=== PATIENT | female | born 1940 | race Caucasian/White ===

== ENCOUNTER → 2016-04-26 | Outpatient (CLI) | payer MEDICARE, BC ==
[2016-04-26 16:26] LABS: ALT 52 U/L (9-52); AST 31 U/L (14-36); Cholesterol 133 mg/dL (<200); HDL Cholesterol 39 mg/dL (40-60); Triglycerides 157 mg/dL (<150)
== END | disposition home or self-care (01) ==
LOC: LABWHC1 15:39
PROVIDERS: ATTEND Internal Medicine Interventional Cardiology
DX: E78.2 Mixed hyperlipidemia (principal)
CPT/HCPCS: 36415; 80061; 84450; 84460

== ENCOUNTER → 2016-10-04 | Outpatient (CLI) | payer MEDICARE, BC ==
[2016-10-04 10:25] LABS: ALT 48 U/L (9-52); AST 35 U/L (14-36); Alkaline Phosphatase 79 U/L (38-126); Anion Gap 12 mmol/L; Blood Urea Nitrogen 19 mg/dL (7-17); Calcium 9.1 mg/dL (8.4-10.2); Carbon Dioxide 28 mmol/L (22-30); Chloride 101 mmol/L (98-107); Cholesterol 136 mg/dL (<200); Glucose 101 mg/dL (74-99); HDL Cholesterol 41 mg/dL (40-60); Non-African American GFR(MDRD) >60 (>60 ml/min/1.73 sqM); Potassium 4.3 mmol/L (3.5-5.1); Sodium 141 mmol/L (137-145); Total Bilirubin 0.7 mg/dL (0.2-1.3); Total Protein 6.7 g/dL (6.3-8.2); Triglycerides 114 mg/dL (<150)
== END | disposition home or self-care (01) ==
LOC: LABWHC1 09:40
PROVIDERS: ATTEND Internal Medicine Interventional Cardiology
DX: E78.2 Mixed hyperlipidemia (principal)
CPT/HCPCS: 36415; 80053; 80061

== ENCOUNTER → 2017-09-24 | Outpatient (CLI) | payer MEDICARE ==
[2017-09-24 10:19] LABS: ALT 82 U/L (9-52); AST 62 U/L (14-36); Albumin 3.9 g/dL (3.5-5.0); Alkaline Phosphatase 80 U/L (38-126); Anion Gap 11 mmol/L; Blood Urea Nitrogen 16 mg/dL (7-17); Calcium 9.3 mg/dL (8.4-10.2); Carbon Dioxide 30 mmol/L (22-30); Chloride 102 mmol/L (98-107); Cholesterol 115 mg/dL (<200); Glucose 92 mg/dL (74-99); HDL Cholesterol 41 mg/dL (40-60); LDL Cholesterol,Calculated 46 mg/dL (0-99); Sodium 143 mmol/L (137-145); Total Bilirubin 0.3 mg/dL (0.2-1.3); Total Protein 6.2 g/dL (6.3-8.2); Triglycerides 142 mg/dL (<150)
== END | disposition home or self-care (01) ==
LOC: LABWHC1 09:03
PROVIDERS: ATTEND Internal Medicine Interventional Cardiology
DX: E78.2 Mixed hyperlipidemia (principal)
CPT/HCPCS: 36415; 80053; 80061

== ENCOUNTER → 2018-04-18 | Outpatient (CLI) | payer MEDICARE ==
[2018-04-18 17:00] LABS: Albumin 4.1 g/dL (3.80-4.90); Albumin/Globulin Ratio 2.28 (1.20-2.10); Anion Gap 7.4 mmol/L (4.00-12.00); Calcium 9.2 mg/dL (8.7-10.3); Carbon Dioxide 31.6 mmol/L (21.6-31.8); Globulin 1.8 g/dL (1.6-3.3); Potassium 4.9 mmol/L (3.5-5.5); Total Bilirubin 0.4 mg/dL (0.3-1.2); Total Protein 5.9 g/dL (6.2-8.2)
== END | disposition home or self-care (01) ==
LOC: LABWHC1 08:47
PROVIDERS: ATTEND Internal Medicine Interventional Cardiology
DX: E78.2 Mixed hyperlipidemia (principal)
CPT/HCPCS: 36415; 80053; 80061

== ENCOUNTER 2018-09-27 12:49 | Inpatient (IN) | payer MEDICARE ==
[2018-09-27] MEDS ORDERED: hydrALAZINE HCL 20 MG/ML 1 ML VIAL IVP STA (14:23)
[2018-09-27] MEDS ORDERED: SODIUM CHLORIDE 0.9% 1,000 ML IV ONE (14:23)
--- NOTE | 2018-09-27 14:32 | ED ---
General Adult HPI <Troy Guerra - Last Filed: 09/27/18 16:40> - General Source: patient, RN notes reviewed, old records reviewed Mode of arrival: ambulatory <MiguelMichelle funk - Last Filed: 09/27/18 17:03> - General Chief complaint: Recheck/Abnormal Lab/Rx Stated complaint: sent by HTN Time Seen by Provider: 09/27/18 13:56 - History of Present Illness Initial comments: 77-year-old female presents emergency department today for evaluation today with complaints of high blood pressure. She states that she's been feeling that her blood pressure was high complaint of slight headache shortness of breath. She took her blood pressure at home was 250s over 100. Patient went to clinic in the clinic Center directly here. She states that she does see Dr. Euceda has a previous history of cardiac stenting. Patient states that she's been out of her [facility] blood pressure medicine for a few weeks. She does take her other medications as directed. Patient denies any significant chest pain. She does complain of a headache. (Michelle Rivera) - Related Data Home Medications Medication Instructions Recorded Confirmed Aspirin 81 mg PO DAILY 01/16/16 01/17/16 Calcium Carbonate/Vitamin D3 1 each PO BID 01/16/16 01/17/16 [Calcium 600-Vit D3 200 Tablet] Cholecalciferol [Vitamin D3 (25 3,000 unit PO DAILY 01/16/16 01/17/16 Mcg = 1000 Iu)] Losartan/Hydrochlorothiazide 1 each PO DAILY 01/16/16 01/17/16 [Hyzaar 100-25 Tablet] Multivit with Calcium,Iron,Min 1 each PO DAILY 01/16/16 01/17/16 [Women's Daily Multivitamin] Nadolol [Corgard] 120 mg PO DAILY 01/16/16 01/17/16 Omeprazole [PriLOSEC] 20 mg PO AC-BRKFST 01/16/16 01/17/16 Tamoxifen [Nolvadex] 20 mg PO DAILY 01/16/16 01/17/16 amLODIPine [Norvasc] 10 mg PO DAILY 01/16/16 01/17/16 Previous Rx's Medication Instructions Recorded Atorvastatin [Lipitor] 80 mg PO HS #90 tab 01/18/16 Clopidogrel [Plavix] 75 mg PO DAILY #90 tab 01/18/16 Nitroglycerin Sl Tabs [Nitrostat] 0.4 mg SUBLINGUAL Q5M PRN #25 tab 01/18/16 Allergies Allergy/AdvReac Type Severity Reaction Status Date / Time CLEO Inhibitors AdvReac Cough Verified 09/27/18 13:23 Review of Systems ROS Other: All systems not noted in ROS Statement are negative. <Troy Guerra - Last Filed: 09/27/18 16:40> ROS Other: All systems not noted in ROS Statement are negative. <Michelle Rivera - Last Filed: 09/27/18 17:03> ROS Statement: Those systems with pertinent positive or pertinent negative responses have been documented in the HPI. Past Medical History Past Medical History: Cancer, Chest Pain / Angina, Fibromyalgia, Hyperlipidemia, Hypertension, Osteoarthritis (OA) Additional Past Medical History / Comment(s): SOB w/exertion, vertigo @times, L breast cancer 2014 with lumpectomy and radiation. History of Any Multi-Drug Resistant Organisms: None Reported Past Surgical History: Bladder Surgery, Breast Surgery, Heart Catheterization With Stent, Hysterectomy, Orthopedic Surgery Additional Past Surgical History / Comment(s): 01/17/16 PTCA with stent prox/mid RCA and ostium RCA. Other surgical hx: bladder suspension, left lumpectomy, L knee arthroscopic surg., R foot surg for fx repair, bunionectomy and hammer toe., infected abscess removed from upper abdomen Past Anesthesia/Blood Transfusion Reactions: Postoperative Nausea & Vomiting (PONV) Date of Last Stent Placement:: 01/17/16 Past Psychological History: No Psychological Hx Reported Smoking Status: Former smoker Past Alcohol Use History: Occasional Past Drug Use History: None Reported - Past Family History Daughter(s) Family Medical History: Deep Vein Thrombosis (DVT) Father Family Medical History: Cancer, Myocardial Infarction ([place]) Additional Family Medical History / Comment(s): Father was obese. He had skin cancer. He of a [place] in his early 70's. Mother Family Medical History: CVA/TIA, Hypertension Additional Family Medical History / Comment(s): Mother at the age of 59yrs from a CVA <Michelle Rivera - Last Filed: 09/27/18 17:03> General Exam General appearance: alert, in no apparent distress Head exam: Present: atraumatic, normocephalic, normal inspection Eye exam: Present: normal appearance, PERRL, EOMI. Absent: scleral icterus, conjunctival injection, periorbital swelling ENT exam: Present: normal exam, mucous membranes moist Neck exam: Present: normal inspection. Absent: tenderness, meningismus, lymphadenopathy Respiratory exam: Present: normal lung sounds bilaterally. Absent: respiratory distress, wheezes, rales, rhonchi, stridor GI/Abdominal exam: Present: soft, normal bowel sounds. Absent: distended, tenderness, guarding, rebound, rigid Extremities exam: Present: normal inspection, full ROM, normal capillary refill. Absent: tenderness, pedal edema, joint swelling, calf tenderness Back exam: Present: normal inspection Neurological exam: Present: alert, oriented X3, CN II-XII intact Psychiatric exam: Present: normal affect, normal mood <Michelle Rivera - Last Filed: 09/27/18 17:03> - General Exam Comments Initial Comments: This is a 77 rolled female. Alert and oriented. No distress. (Michelle Rivera) Course <Troy Guerra - Last Filed: 09/27/18 16:40> <Michelle Rivera - Last Filed: 09/27/18 17:03> Vital Signs 09/27/18 09/27/18 09/27/18 13:21 13:33 14:39 Temperature 98.2 F Pulse Rate 57 L 63 51 L Respiratory 18 16 16 Rate Blood Pressure 223/84 253/98 222/68 O2 Sat by Pulse 95 96 94 L Oximetry 09/27/18 09/27/18 09/27/18 14:59 15:16 15:27 Temperature 97.1 F L Pulse Rate 67 67 Respiratory 16 18 Rate Blood Pressure 184/63 172/66 180/88 O2 Sat by Pulse 98 93 L Oximetry 09/27/18 09/27/18 16:45 16:56 Temperature Pulse Rate 62 61 Respiratory 18 16 Rate Blood Pressure 172/95 193/75 O2 Sat by Pulse 94 L 95 Oximetry - Reevaluation(s) Reevaluation #1: 09/27/18 15:52 Patient started on this time, states that she feels worse than prior to coming in. She states that her face feels flushed, complaining of worsening shortness of breath. (Michelle Rivera) Reevaluation #2: 09/27/18 15:52 Stat EKG was ordered as Patient states she felt worse. Additional sinus rhythm incomplete left bundle branch block borderline EKG. Ventricular rate 67 bpm. Pulse 172 ms. QRS duration 114 ms. QT QTc is 442/467 ms. (Michelle Rivera) Reevaluation #3: 09/27/18 16:40 PG supervision: I proceeded [id number] evaluation patient did discuss [employer] her family. Patient did present with hypertensive emergency with systolic blood pressures proximal 250. She's had exertional dyspnea and shortness of breath at rest frontal headache she states she is to fill right feel well. She was on Benicar which she's not been able get filled for the past 3-4 weeks. She denies any chest pain though she does have a history of heart disease with stents no fevers chills nausea vomiting. She did appear to be flushed. She will be admitted I did discuss the case with Dr. Eisenberg who did come to the emergency department see the patient. (Troy Guerra) Medical Decision Making - Lab Data Result diagrams: 09/27/18 13:50 09/27/18 13:50 <Troy Guerra - Last Filed: 09/27/18 16:40> - Lab Data Result diagrams: 09/27/18 13:50 09/27/18 13:50 - Radiology Data Radiology results: report reviewed <Michelle Rivera - Last Filed: 09/27/18 17:03> - Medical Decision Making Patient is a 77-year-old female presents return today for evaluation for hype rtension. She complains of some mild dyspnea on reevaluation Patient upon repeat arrival she denied any significant symptoms. His lids a mild headache associated with dry blood pressure. She's been out of her Benicar for the past month. At this time patient's EKG and lab work was reviewed and unremarkable. Patient blood pressure did come down from 250/100-190/97 after 20 mg of hydralazine. Her heart rates been in and the mid 60s and emergency department stay. After she walked back from the bathroom she complained of some dyspnea and chest pain on exertion. She was started on aspirin, Nitropaste. Patient will be admitted at this time, started on heparin for concerns for unstable randy na. (Michelle Rivera) - Lab Data Lab Results 09/27/18 09/27/18 09/27/18 Range/Units 13:50 13:50 13:50 WBC 11.3 H (3.8-10.6) k/uL RBC 4.31 (3.80-5.40) m/uL Hgb 12.8 (11.4-16.0) gm/dL Hct 39.3 (34.0-46.0) % MCV 91.2 (80.0-100.0) fL MCH 29.7 (25.0-35.0) pg MCHC 32.6 (31.0-37.0) g/dL RDW 12.9 (11.5-15.5) % Plt Count 227 (150-450) k/uL Neutrophils % 69 % Lymphocytes % 21 % Monocytes % 6 % Eosinophils % 2 % Basophils % 1 % Neutrophils # 7.8 H (1.3-7.7) k/uL Lymphocytes # 2.4 (1.0-4.8) k/uL Monocytes # 0.7 (0-1.0) k/uL Eosinophils # 0.3 (0-0.7) k/uL Basophils # 0.1 (0-0.2) k/uL PT (9.0-12.0) sec INR (<1.2) APTT (22.0-30.0) sec Sodium 143 (137-145) mmol/L Potassium 4.0 (3.5-5.1) mmol/L Chloride 106 (98-107) mmol/L Carbon Dioxide 31 H (22-30) mmol/L Anion Gap 6 mmol/L BUN 15 (7-17) mg/dL Creatinine 0.61 (0.52-1.04) mg/dL Est GFR (CKD-EPI)AfAm >90 (>60 ml/min/1.73 sqM) Est GFR (CKD-EPI)NonAf 87 (>60 ml/min/1.73 sqM) Glucose 85 (74-99) mg/dL Calcium 9.5 (8.4-10.2) mg/dL Magnesium 1.9 (1.6-2.3) mg/dL Total Bilirubin 0.7 (0.2-1.3) mg/dL AST 74 H (14-36) U/L ALT 71 H (9-52) U/L Alkaline Phosphatase 98 (38-126) U/L Troponin I (0.000-0.034) ng/mL NT-Pro-B Natriuret Pep 1020 pg/mL Total Protein 7.2 (6.3-8.2) g/dL Albumin 4.3 (3.5-5.0) g/dL 09/27/18 09/27/18 Range/Units 13:50 13:50 WBC (3.8-10.6) k/uL RBC (3.80-5.40) m/uL Hgb (11.4-16.0) gm/dL Hct (34.0-46.0) % MCV (80.0-100.0) fL MCH (25.0-35.0) pg MCHC (31.0-37.0) g/dL RDW (11.5-15.5) % Plt Count (150-450) k/uL Neutrophils % % Lymphocytes % % Monocytes % % Eosinophils % % Basophils % % Neutrophils # (1.3-7.7) k/uL Lymphocytes # (1.0-4.8) k/uL Monocytes # (0-1.0) k/uL Eosinophils # (0-0.7) k/uL Basophils # (0-0.2) k/uL PT 9.9 (9.0-12.0) sec INR 0.9 (<1.2) APTT 21.2 L (22.0-30.0) sec Sodium (137-145) mmol/L Potassium (3.5-5.1) mmol/L Chloride (98-107) mmol/L Carbon Dioxide (22-30) mmol/L Anion Gap mmol/L BUN (7-17) mg/dL Creatinine (0.52-1.04) mg/dL Est GFR (CKD-EPI)AfAm (>60 ml/min/1.73 sqM) Est GFR (CKD-EPI)NonAf (>60 ml/min/1.73 sqM) Glucose (74-99) mg/dL Calcium (8.4-10.2) mg/dL Magnesium (1.6-2.3) mg/dL Total Bilirubin (0.2-1.3) mg/dL AST (14-36) U/L ALT (9-52) U/L Alkaline Phosphatase (38-126) U/L Troponin I <0.012 (0.000-0.034) ng/mL NT-Pro-B Natriuret Pep pg/mL Total Protein (6.3-8.2) g/dL Albumin (3.5-5.0) g/dL 09/27/18 14:34 EKG shows sinus bradycardia with PVCs, otherwise normal EKG. Ventricular rate 50 beats.. TX interval is 180 ms. Frustration 104. QTQTC's were 64/423 ms. (Michelle Rivera) - Radiology Data Chest x-ray shows evidence of pulmonary fibrosis. Mild cardiomegaly. (Michelle Rivera) Disposition <Troy Guerra - Last Filed: 09/27/18 16:40> Is patient prescribed a controlled substance at d/c from ED?: No Time of Disposition: 17:03 <Michelle Rivera - Last Filed: 09/27/18 17:03> Clinical Impression: Hypertensive emergency, Dyspnea on exertion, Unstable angina Disposition: HOME SELF-CARE Condition: Good Referrals: Alanis Choe MD [Primary Care Provider] - 1-2 days
[2018-09-27 14:42] LABS: Basophils # (A) 0.1 k/uL (0-0.2); Basophils % (A) 1 %; Eosinophils # (A) 0.3 k/uL (0-0.7); Eosinophils % (A) 2 %; HCT 39.3 % (34.0-46.0); HGB 12.8 gm/dL (11.4-16.0); Lymphocytes # (A) 2.4 k/uL (1.0-4.8); Lymphocytes % (A) 21 %; MCH 29.7 pg (25.0-35.0); MCHC 32.6 g/dL (31.0-37.0); MCV 91.2 fL (80.0-100.0); Mean Platelet Volume 8.1; Monocytes # (A) 0.7 k/uL (0-1.0); Monocytes % (A) 6 %; Neutrophils # (A) 7.8 k/uL (1.3-7.7); Neutrophils % (A) 69 %; Platelet Count 227 k/uL (150-450); RBC 4.31 m/uL (3.80-5.40); RDW 12.9 % (11.5-15.5); WBC 11.3 k/uL (3.8-10.6)
[2018-09-27 14:49] LABS: ALT 71 U/L (9-52); AST 74 U/L (14-36); African American GFR (CKD) >90 (>60 ml/min/1.73 sqM); Albumin 4.3 g/dL (3.5-5.0); Alkaline Phosphatase 98 U/L (38-126); Anion Gap 6 mmol/L; Blood Urea Nitrogen 15 mg/dL (7-17); Calcium 9.5 mg/dL (8.4-10.2); Carbon Dioxide 31 mmol/L (22-30); Chloride 106 mmol/L (98-107); Glucose 85 mg/dL (74-99); Magnesium 1.9 mg/dL (1.6-2.3); Sodium 143 mmol/L (137-145); Total Bilirubin 0.7 mg/dL (0.2-1.3); Total Protein 7.2 g/dL (6.3-8.2)
[2018-09-27 15:02] LABS: INR 0.9 (<1.2); Prothrombin Time 9.9 sec (9.0-12.0)
[2018-09-27 15:19] LABS: Partial Thromboplastin Time 21.2 sec (22.0-30.0)
[2018-09-27] MEDS ORDERED: ASPIRIN 325 MG TAB PO STA (15:45)
[2018-09-27] MEDS ORDERED: NITROGLYCERIN OINT 1 INCH/GM PACKET TOPICAL STA (15:45)
--- NOTE | 2018-09-27 15:45 | XR ---
EXAMINATION TYPE: XR chest 2V DATE OF EXAM: 09/27/2018 COMPARISON: NONE HISTORY: Chest pain TECHNIQUE: Frontal and lateral views of the chest are obtained. FINDINGS: Heart is enlarged. There is coarsening of the lung markings. There are clips over the left breast. There is no pleural effusion. Bony thorax is intact. IMPRESSION: Pulmonary fibrosis. Mild cardiomegaly.
[2018-09-27] MEDS ORDERED: HEPARIN SODIUM,PORCINE 5,000 UNIT/ML 1 ML VIAL IV ONE (16:20)
[2018-09-27] MEDS ORDERED: NITROGLYCERIN SL TABS 0.4 MG TAB SUBLINGUAL PRN (16:20)
[2018-09-27] MEDS ORDERED: HEPARIN SOD,PORK IN 0.45% NACL 25,000 UNIT in 0.45% NACL 1 250ML.BAG IV SCH (16:30)
[2018-09-27] MEDS: SODIUM CHLORIDE 0.9% 1,000 ML IV SCH (16:52)
[2018-09-27] MEDS ORDERED: LOSARTAN 50 MG TAB PO STA (16:53)
[2018-09-27 16:57] VITALS: RESP 16
[2018-09-27] MEDS ORDERED: ACETAMINOPHEN TAB 500 MG TAB PO STA (16:58)
--- NOTE | 2018-09-27 16:58 | P.HPIM ---
History of Present Illness 77-year-old pleasant female is being admitted for accelerated hypertension and hypertensive urgency. Patient takes her blood pressure which was very high was coming of some shortness of breath although there is no pulmonary edema does have pulmonary fibrosis which is chronic. Was seen in urgent care urgent care people sent her here and patient was given a dose of hydralazine patient blood pressure is presently 170 is supposed to systolics. Patient used to be on Benicar until 3 weeks ago and the [facility] didn't refill that medication as a supplier does not have this medication. Patient was having on and off headache beyond that patient doesn't have any other symptoms of hypertensive urgency including the blurry vision confusion, chest pain abdominal pain there is some shortness of breath but there is no flash pulmonary edema. Her medications are not to verified it because of which I didn't do the reconciliation yet. Patient had a history of coronary disease with stents in the past. Review of Systems REVIEW OF SYSTEMS: CONSTITUTIONAL: No fever, no malaise, no fatigue. HEENT: No recent visual problems or hearing problems. Denied any sore throat. CARDIOVASCULAR: No chest pain, orthopnea, PND, no palpitations, no syncope. PULMONARY: no cough, no hemoptysis. GASTROINTESTINAL: No diarrhea, no nausea, no vomiting, no abdominal pain. NEUROLOGICAL: no weakness, no numbness. HEMATOLOGICAL: Denies any bleeding or petechiae. GENITOURINARY: Denies any burning micturition, frequency, or urgency. MUSCULOSKELETAL/RHEUMATOLOGICAL: Denies any joint pain, swelling, or any muscle pain. ENDOCRINE: Denies any polyuria or polydipsia. The rest of the 14-point review of systems is negative. Past Medical History Past Medical History: Cancer, Chest Pain / Angina, Fibromyalgia, Hyperlipidemia, Hypertension, Osteoarthritis (OA) Additional Past Medical History / Comment(s): SOB w/exertion, vertigo @times, L breast cancer 2013 with lumpectomy and radiation. History of Any Multi-Drug Resistant Organisms: None Reported Past Surgical History: Bladder Surgery, Breast Surgery, Heart Catheterization With Stent, Hysterectomy, Orthopedic Surgery Additional Past Surgical History / Comment(s): 01/17/16 PTCA with stent prox/mid RCA and ostium RCA. Other surgical hx: bladder suspension, left lumpectomy, L knee arthroscopic surg., R foot surg for fx repair, bunionectomy and hammer toe., infected abscess removed from upper abdomen Past Anesthesia/Blood Transfusion Reactions: Postoperative Nausea & Vomiting (PONV) Date of Last Stent Placement:: 01/17/16 Past Psychological History: No Psychological Hx Reported Smoking Status: Former smoker Past Alcohol Use History: Occasional Past Drug Use History: None Reported - Past Family History Daughter(s) Family Medical History: Deep Vein Thrombosis (DVT) Father Family Medical History: Cancer, Myocardial Infarction ([place]) Additional Family Medical History / Comment(s): Father was obese. He had skin cancer. He of a [place] in his early 70's. Mother Family Medical History: CVA/TIA, Hypertension Additional Family Medical History / Comment(s): Mother at the age of 59yrs from a CVA Medications and Allergies Home Medications Medication Instructions Recorded Confirmed Type Aspirin 81 mg PO DAILY 01/16/16 01/17/16 History Calcium Carbonate/Vitamin D3 1 each PO BID 01/16/16 01/17/16 History [Calcium 600-Vit D3 200 Tablet] Cholecalciferol [Vitamin D3 (25 3,000 unit PO DAILY 01/16/16 01/17/16 History Mcg = 1000 Iu)] Losartan/Hydrochlorothiazide 1 each PO DAILY 01/16/16 01/17/16 History [Hyzaar 100-25 Tablet] Multivit with Calcium,Iron,Min 1 each PO DAILY 01/16/16 01/17/16 History [Women's Daily Multivitamin] Nadolol [Corgard] 120 mg PO DAILY 01/16/16 01/17/16 History Omeprazole [PriLOSEC] 20 mg PO AC-BRKFST 01/16/16 01/17/16 History Tamoxifen [Nolvadex] 20 mg PO DAILY 01/16/16 01/17/16 History amLODIPine [Norvasc] 10 mg PO DAILY 01/16/16 01/17/16 History Atorvastatin [Lipitor] 80 mg PO HS #90 tab 01/18/16 Rx Clopidogrel [Plavix] 75 mg PO DAILY #90 tab 01/18/16 Rx Nitroglycerin Sl Tabs [Nitrostat] 0.4 mg SUBLINGUAL Q5M PRN #25 tab 01/18/16 Rx Allergies Allergy/AdvReac Type Severity Reaction Status Date / Time CLEO Inhibitors AdvReac Cough Verified 09/27/18 13:23 Physical Exam Vitals: Vital Signs Temp Pulse Resp BP Pulse Ox 09/27/18 16:45 62 18 172/95 94 L 09/27/18 15:27 97.1 F L 67 18 180/88 93 L 09/27/18 15:16 67 16 172/66 98 09/27/18 14:59 184/63 09/27/18 14:39 51 L 16 222/68 94 L 09/27/18 13:33 63 16 253/98 96 09/27/18 13:21 98.2 F 57 L 18 223/84 95 Intake and Output 09/27/18 09/27/18 09/27/18 06:59 14:59 22:59 Other: Weight 81.647 kg PHYSICAL EXAMINATION: GENERAL: The patient is alert and oriented x3, not in any acute distress. Well developed, well nourished. HEENT: Pupils are round and equally reacting to light. EOMI. No scleral icterus. No conjunctival pallor. Normocephalic, atraumatic. No pharyngeal erythema. No thyromegaly. CARDIOVASCULAR: S1 and S2 present. No murmurs, rubs, or gallops. PULMONARY: Chest is clear to auscultation, no wheezing or crackles. ABDOMEN: Soft, nontender, nondistended, normoactive bowel sounds. No palpable organomegaly. MUSCULOSKELETAL: No joint swelling or deformity. EXTREMITIES: No cyanosis, clubbing, or pedal edema. NEUROLOGICAL: Gross neurological examination did not reveal any focal deficits. SKIN: No rashes. Results CBC & Chem 7: 09/27/18 13:50 09/27/18 13:50 Labs: Abnormal Lab Results - Last 24 Hours (Table) 09/27/18 09/27/18 09/27/18 Range/Units 13:50 13:50 13:50 WBC 11.3 H (3.8-10.6) k/uL Neutrophils # 7.8 H (1.3-7.7) k/uL APTT 21.2 L (22.0-30.0) sec Carbon Dioxide 31 H (22-30) mmol/L AST 74 H (14-36) U/L ALT 71 H (9-52) U/L Assessment and Plan Plan: Accelerated hypertension, hypertensive urgency: Patient was started on a 50 mg of losartan will level monitored overnight patient will be resumed on her home medications and that depending on her blood pressure response with increasing losartan or add a diuretic therapy. Patient probably can be discharged tomorrow Heparin cannot disease with previous stents in the past patient will be resumed on her home medications as these are verified -Fibro-myalgia next and heparin hyperlipidemia -Hypertension -History of breast cancer patient is taking tamoxifen which she'll be done soon in few months. -DVT prophylaxis early ambulation
[2018-09-27] MEDS ORDERED: NALOXONE 0.4 MG/ML 1 ML VIAL IV PRN (17:04)
--- NOTE | 2018-09-27 17:33 | ED ---
Medical Decision Making - Lab Data Result diagrams: 09/27/18 13:50 09/27/18 13:50 Lab Results 09/27/18 09/27/18 09/27/18 Range/Units 13:50 13:50 13:50 WBC 11.3 H (3.8-10.6) k/uL RBC 4.31 (3.80-5.40) m/uL Hgb 12.8 (11.4-16.0) gm/dL Hct 39.3 (34.0-46.0) % MCV 91.2 (80.0-100.0) fL MCH 29.7 (25.0-35.0) pg MCHC 32.6 (31.0-37.0) g/dL RDW 12.9 (11.5-15.5) % Plt Count 227 (150-450) k/uL Neutrophils % 69 % Lymphocytes % 21 % Monocytes % 6 % Eosinophils % 2 % Basophils % 1 % Neutrophils # 7.8 H (1.3-7.7) k/uL Lymphocytes # 2.4 (1.0-4.8) k/uL Monocytes # 0.7 (0-1.0) k/uL Eosinophils # 0.3 (0-0.7) k/uL Basophils # 0.1 (0-0.2) k/uL PT (9.0-12.0) sec INR (<1.2) APTT (22.0-30.0) sec Sodium 143 (137-145) mmol/L Potassium 4.0 (3.5-5.1) mmol/L Chloride 106 (98-107) mmol/L Carbon Dioxide 31 H (22-30) mmol/L Anion Gap 6 mmol/L BUN 15 (7-17) mg/dL Creatinine 0.61 (0.52-1.04) mg/dL Est GFR (CKD-EPI)AfAm >90 (>60 ml/min/1.73 sqM) Est GFR (CKD-EPI)NonAf 87 (>60 ml/min/1.73 sqM) Glucose 85 (74-99) mg/dL Calcium 9.5 (8.4-10.2) mg/dL Magnesium 1.9 (1.6-2.3) mg/dL Total Bilirubin 0.7 (0.2-1.3) mg/dL AST 74 H (14-36) U/L ALT 71 H (9-52) U/L Alkaline Phosphatase 98 (38-126) U/L Troponin I (0.000-0.034) ng/mL NT-Pro-B Natriuret Pep 1020 pg/mL Total Protein 7.2 (6.3-8.2) g/dL Albumin 4.3 (3.5-5.0) g/dL 09/27/18 09/27/18 Range/Units 13:50 13:50 WBC (3.8-10.6) k/uL RBC (3.80-5.40) m/uL Hgb (11.4-16.0) gm/dL Hct (34.0-46.0) % MCV (80.0-100.0) fL MCH (25.0-35.0) pg MCHC (31.0-37.0) g/dL RDW (11.5-15.5) % Plt Count (150-450) k/uL Neutrophils % % Lymphocytes % % Monocytes % % Eosinophils % % Basophils % % Neutrophils # (1.3-7.7) k/uL Lymphocytes # (1.0-4.8) k/uL Monocytes # (0-1.0) k/uL Eosinophils # (0-0.7) k/uL Basophils # (0-0.2) k/uL PT 9.9 (9.0-12.0) sec INR 0.9 (<1.2) APTT 21.2 L (22.0-30.0) sec Sodium (137-145) mmol/L Potassium (3.5-5.1) mmol/L Chloride (98-107) mmol/L Carbon Dioxide (22-30) mmol/L Anion Gap mmol/L BUN (7-17) mg/dL Creatinine (0.52-1.04) mg/dL Est GFR (CKD-EPI)AfAm (>60 ml/min/1.73 sqM) Est GFR (CKD-EPI)NonAf (>60 ml/min/1.73 sqM) Glucose (74-99) mg/dL Calcium (8.4-10.2) mg/dL Magnesium (1.6-2.3) mg/dL Total Bilirubin (0.2-1.3) mg/dL AST (14-36) U/L ALT (9-52) U/L Alkaline Phosphatase (38-126) U/L Troponin I <0.012 (0.000-0.034) ng/mL NT-Pro-B Natriuret Pep pg/mL Total Protein (6.3-8.2) g/dL Albumin (3.5-5.0) g/dL Disposition Clinical Impression: Hypertensive emergency, Dyspnea on exertion, Unstable angina Disposition: ADMITTED IP TO THIS HOSP Condition: Good Referrals: Alanis Choe MD [Primary Care Provider] - 1-2 days
[2018-09-27] MEDS ORDERED: BUTA/APAP/CAF/COD 50-325-40-30 CAP PO STA (19:07)
[2018-09-27] MEDS ORDERED: traMADol 50 MG TAB PO STA (22:21)
[2018-09-27] MEDS: hydrALAZINE HCL 50 MG TAB PO PRN (22:37)
--- NOTE | 2018-09-27 23:09 | CT ---
EXAM: CT Head Without Intravenous Contrast CLINICAL HISTORY: ITS.REASON CT Reason: headache TECHNIQUE: Axial computed tomography images of the head/brain without intravenous contrast. CTDI is 55 mGy and DLP is 1282 mGy-cm. This CT exam was performed using one or more of the following dose reduction techniques: automated exposure control, adjustment of the mA and/or kV according to patient size, and/or use of iterative reconstruction technique. COMPARISON: No relevant prior studies available. FINDINGS: Brain: No hemorrhage, large hypodensity, or mass effect. Chronic microvascular ischemic changes. Ventricles: No hydrocephalus. Age-appropriate cerebral volume loss. Bones/joints: Unremarkable. Soft tissues: Unremarkable. Sinuses: Unremarkable. Mastoid air cells: Clear. IMPRESSION: No acute hemorrhage, hydrocephalus, or mass effect. EXAM: CT Cervical Spine Without Intravenous Contrast CLINICAL HISTORY: ITS.REASON CT Reason: headache TECHNIQUE: Axial computed tomography images of the cervical spine without intravenous contrast. CTDI is 55 mGy and DLP is 1282 mGy-cm. This CT exam was performed using one or more of the following dose reduction techniques: automated exposure control, adjustment of the mA and/or kV according to patient size, and/or use of iterative reconstruction technique. COMPARISON: No relevant prior studies available. FINDINGS: Vertebrae: No acute fracture. Reversal of the normal cervical lordosis. Discs/spinal canal/neural foramina: Severe degenerative disc disease from C4-C6. No high grade spinal canal stenosis. Soft tissues: 2.5 cm lesion in the left thyroid gland. IMPRESSION: No acute fracture or subluxation. 2.5 cm lesion in the left thyroid gland.
[2018-09-27 23:20] LABS: Cholesterol 106 mg/dL (<200); HDL Cholesterol 42 mg/dL (40-60); LDL Cholesterol,Calculated 38 mg/dL (0-99); Triglycerides 130 mg/dL (<150)
[2018-09-28] MEDS: LOSARTAN 50 MG TAB PO SCH (08:16)
[2018-09-28] MEDS: ASPIRIN 81 MG PO SCH (08:17)
[2018-09-28] MEDS: ATORVASTATIN 40 MG TAB PO SCH (08:17)
[2018-09-28] MEDS ORDERED: ASPIRIN 325 MG TAB PO SCH (09:00)
--- NOTE | 2018-09-28 09:00 | P.CRDCN ---
History of Present Illness Consult date: 09/28/18 Requesting physician: Prosper Eisenberg Consult reason: hypertension Chief complaint: Hypertension History of present illness: This is a pleasant 77-year-old female who follows regularly with Dr. Euceda in the office. She has known history of hypertension, hyperlipidemia, coronary artery disease with prior stenting of the proximal and mid right coronary artery and ostium of the right coronary artery in 2016. She states in general she just wasn't feeling well, feeling tired, having mild headache she checked her blood pressure at home which was noted to be greater than 200 systo lic, she states that she relaxed took her blood pressure pill and in spite of that the blood pressure remained high she came to the emergency room for further evaluation and treatment. Patient was on Corgard and Benicar at home, however for the past 2 years she has not taken the Benicar because her pharmacy is not able to obtain it. Blood pressure on arrival here 223/80 with a heart rate in the 50s, 95% on room air. Blood pressure this morning 223/90 with a heart rate in the 50s to 60s, 95% on room air. White blood cell count 11.3, hemoglobin 12.8, platelet count 227. Sodium 143, potassium 4.0, BUN 15 and creatinine 0.6. Magnesium 1.9. Troponins negative 3, BNP 1020. At the time of my examination this morning, patient is complaining of mild headache. A CT of the head and cervical spine was performed which did not reveal any acute hemorrhage or mass effect. No acute fracture or subluxation. A 2.5 cm lesion in the left thyroid noted. EKG shows a sinus bradycardia. Chest x-ray shows pulmonary fibrosis and mild cardiomegaly. Past Medical History Past Medical History: Cancer, Chest Pain / Angina, Fibromyalgia, Hyperlipidemia, Hypertension, Osteoarthritis (OA) Additional Past Medical History / Comment(s): SOB w/exertion, vertigo @times, L breast cancer 2013 with lumpectomy and radiation. History of Any Multi-Drug Resistant Organisms: None Reported Past Surgical History: Bladder Surgery, Breast Surgery, Heart Catheterization With Stent, Hysterectomy, Orthopedic Surgery Additional Past Surgical History / Comment(s): 01/17/16 PTCA with stent prox/mid RCA and ostium RCA. Other surgical hx: bladder suspension, left lumpectomy, L knee arthroscopic surg., R foot surg for fx repair, bunionectomy and hammer toe., infected abscess removed from upper abdomen Past Anesthesia/Blood Transfusion Reactions: Postoperative Nausea & Vomiting (PONV) Date of Last Stent Placement:: 01/17/16 Past Psychological History: No Psychological Hx Reported Additional Psychological History / Comment(s): Pt resides alone. She is independent. Smoking Status: Former smoker Past Alcohol Use History: Occasional Additional Past Alcohol Use History / Comment(s): quit smoking 35 yrs. ago, smoked for 20 yrs. Past Drug Use History: None Reported - Past Family History Daughter(s) Family Medical History: Deep Vein Thrombosis (DVT) Father Family Medical History: Cancer, Myocardial Infarction ([place]) Additional Family Medical History / Comment(s): Father was obese. He had skin cancer. He of a [place] in his early 70's. Mother Family Medical History: CVA/TIA, Hypertension Additional Family Medical History / Comment(s): Mother at the age of 59yrs from a CVA Medications and Allergies Home Medications Medication Instructions Recorded Confirmed Type Aspirin 81 mg PO DAILY 01/16/16 09/27/18 History Calcium Carbonate/Vitamin D3 1 tab PO BID 01/16/16 09/27/18 History [Calcium 600-Vit D3 200 Tablet] Cholecalciferol [Vitamin D3 (25 2,000 unit PO DAILY 01/16/16 09/27/18 History Mcg = 1000 Iu)] Multivit with Calcium,Iron,Min 1 tab PO DAILY 01/16/16 09/27/18 History [Women's Daily Multivitamin] Nadolol [Corgard] 120 mg PO DAILY 01/16/16 09/27/18 History Tamoxifen [Nolvadex] 20 mg PO DAILY 01/16/16 09/27/18 History Atorvastatin Calcium [Lipitor] 40 mg PO DAILY 09/27/18 09/27/18 History Fish Oil/Dha/Epa [Fish Oil 1,200 1 cap PO DAILY 09/27/18 09/27/18 History mg Fish Oil] Glucosam/Damion-Msm1/C/Johann/Bosw 1 tab PO BID 09/27/18 09/27/18 History [Glucosamine-Chondroitin Tablet] Melatonin 10 mg PO HS 09/27/18 09/27/18 History Olmesartan [Benicar] 20 mg PO DAILY 09/27/18 09/27/18 History Pantoprazole [Protonix] 40 mg PO DAILY 09/27/18 09/27/18 History Allergies Allergy/AdvReac Type Severity Reaction Status Date / Time CLEO Inhibitors AdvReac Cough Verified 09/27/18 17:35 Physical Exam Vitals: Vital Signs Temp Pulse Pulse Resp BP BP Pulse Ox 09/28/18 08:04 97 F L 57 L 16 223/91 95 09/28/18 04:00 97 F L 70 16 149/78 92 L 09/28/18 00:00 97 F L 64 16 200/92 98 09/27/18 23:51 97.9 F 59 L 16 166/68 95 09/27/18 22:00 63 16 193/82 95 09/27/18 19:42 57 L 16 194/75 96 09/27/18 18:03 67 16 179/64 96 09/27/18 16:56 61 16 193/75 95 09/27/18 16:45 62 18 172/95 94 L 09/27/18 15:27 97.1 F L 67 18 180/88 93 L 09/27/18 15:16 67 16 172/66 98 09/27/18 14:59 184/63 09/27/18 14:39 51 L 16 222/68 94 L 09/27/18 13:33 63 16 253/98 96 09/27/18 13:21 98.2 F 57 L 18 223/84 95 Intake and Output 09/27/18 09/28/18 09/28/18 22:59 06:59 14:59 Intake Total 88.835 Balance 88.835 Intake: Intake, IV Titration 88.835 Amount Heparin Sod,Pork in 0.45% 88.835 NaCl 25,000 unit In 0.45 % NaCl 1 250ml.bag @ 12 UNITS/KG/HR 9.798 mls/hr IV .Q24H [facility] Rx#: [id number] Other: # Voids 2 Weight 82.4 kg PHYSICAL EXAMINATION: GENERAL: 77-year-old female in no acute distress at the time of my examination HEENT: Head is atraumatic, normocephalic. Pupils equal, round. Sclera anicteric. Conjunctiva are clear. Mucous membranes of the mouth are moist. Neck is supple. There is no elevated jugular venous pressure. No carotid bruit is heard. HEART EXAMINATION: S1 and S2 1 systolic ejection murmur is heard CHEST EXAMINATION: Lungs are clear to auscultation and precussion. No chest wall tenderness is noted on palpation or with deep breathing. ABDOMEN: Soft, nontender. Bowel sounds are heard. No organomegaly noted. EXTREMITIES: 2+ peripheral pulses with no evidence of peripheral edema and no calf tenderness noted. NEUROLOGIC patient is awake, alert and oriented 3 . . Results 09/27/18 13:50 09/27/18 13:50 Cardiac Enzymes 09/27/18 09/27/18 09/27/18 Range/Units 13:50 13:50 19:58 AST 74 H (14-36) U/L Troponin I <0.012 <0.012 (0.000-0.034) ng/mL 09/28/18 Range/Units 01:41 AST (14-36) U/L Troponin I <0.012 (0.000-0.034) ng/mL Coagulation 09/27/18 09/28/18 Range/Units 13:50 00:12 PT 9.9 (9.0-12.0) sec APTT 21.2 L 47.3 H (22.0-30.0) sec Lipids 09/27/18 Range/Units 13:50 Triglycerides 130 (<150) mg/dL Cholesterol 106 (<200) mg/dL HDL Cholesterol 42 (40-60) mg/dL CBC 09/27/18 Range/Units 13:50 WBC 11.3 H (3.8-10.6) k/uL RBC 4.31 (3.80-5.40) m/uL Hgb 12.8 (11.4-16.0) gm/dL Hct 39.3 (34.0-46.0) % Plt Count 227 (150-450) k/uL Comprehensive Metabolic Panel 09/27/18 Range/Units 13:50 Sodium 143 (137-145) mmol/L Potassium 4.0 (3.5-5.1) mmol/L Chloride 106 (98-107) mmol/L Carbon Dioxide 31 H (22-30) mmol/L BUN 15 (7-17) mg/dL Creatinine 0.61 (0.52-1.04) mg/dL Glucose 85 (74-99) mg/dL Calcium 9.5 (8.4-10.2) mg/dL AST 74 H (14-36) U/L ALT 71 H (9-52) U/L Alkaline Phosphatase 98 (38-126) U/L Total Protein 7.2 (6.3-8.2) g/dL Albumin 4.3 (3.5-5.0) g/dL Current Medications Generic Name Dose Route Start Last Admin Trade Name Freq PRN Reason Stop Dose Admin Aspirin 81 mg 09/28/18 09:00 09/28/18 08:17 Aspirin PO 81 mg DAILY NIKO Administration Atorvastatin Calcium 40 mg 09/28/18 09:00 09/28/18 08:17 Lipitor PO 40 mg DAILY NIKO Administration Hydralazine HCl 100 mg 09/27/18 22:21 09/27/18 22:37 Apresoline PO 100 mg Q6HR PRN Administration Blood Pressure - High Sodium Chloride 1,000 mls @ 100 mls/hr 09/27/18 16:00 09/27/18 16:52 Saline 0.9% IV 100 mls/hr .Q10H NIKO Administration Heparin Sodium/Sodium Chloride 250 mls @ 9.798 mls/hr 09/27/18 16:30 09/28/18 01:58 25,000 unit/ Sodium Chloride IV 12 units/kg/hr .Q24H NIKO 9.798 mls/hr Titration Protocol 12 UNITS/KG/HR Losartan Potassium 100 mg 09/28/18 09:00 09/28/18 08:16 Cozaar PO 100 mg DAILY NIKO Administration Nadolol 120 mg 09/28/18 09:00 Corgard PO DAILY NIKO Naloxone HCl 0.2 mg 09/27/18 17:04 Narcan IV Q2M PRN Opioid Reversal Nitroglycerin 0.4 mg 09/27/18 16:20 Nitrostat SUBLINGUAL Q5M PRN Chest Pain Intake and Output 09/27/18 09/28/18 09/28/18 22:59 06:59 14:59 Intake Total 88.835 Balance 88.835 Intake: Intake, IV Titration 88.835 Amount Heparin Sod,Pork in 0.45% 88.835 NaCl 25,000 unit In 0.45 % NaCl 1 250ml.bag @ 12 UNITS/KG/HR 9.798 mls/hr IV .Q24H [facility] Rx#: [id number] Other: # Voids 2 Weight 82.4 kg 09/27/18 13:50 09/27/18 13:50 EKG Interpretations (text) EKG shows sinus bradycardia Assessment and Plan Plan: Assessment and plan #1 hypertensive urgency #2 known history of coronary artery disease with prior RCA stenting in 2016 #3 hyperlipidemia Plan We will obtain an echocardiogram with Doppler study. I resumed her Corgard this morning, we do not have Benicar here so the patient was initiated on Cozaar which I restarted this morning, she's also on nitro paste currently. On discharge if her blood pressure is well-controlled we will change the Benicar to Cozaar so her pharmacy will have its availability. We'll continue to monitor blood pressure. DNP note has been reviewed, I agree with a documented findings and plan of care. Patient was seen and examined.
[2018-09-28] MEDS: NADOLOL 20 MG TAB PO SCH (10:15)
[2018-09-28] MEDS: ACETAMINOPHEN TAB 325 MG TAB PO PRN ×3 (10:28→23:30)
[2018-09-28] MEDS ORDERED: CHLORTHALIDONE 25 MG TAB PO SCH (10:30)
[2018-09-28] MEDS: SODIUM CHLORIDE 0.9% 1,000 ML IV SCH ×2 (12:51)
[2018-09-28] MEDS ORDERED: CHLORTHALIDONE 25 MG TAB PO ONE (15:23)
--- NOTE | 2018-09-28 15:38 | P.PN ---
Subjective 77-year-old the female was admitted secondary to accelerated hypertension and hypertensive urgency. Patient does not have any signs or symptoms of end organ damage at this time patient does not have hypertensive emergency although patient blood pressure remains significantly high multiple medication changes were made because of which I'll continue to monitor 1 more night here and patient will be discharged tomorrow if her blood pressure is better tomorrow. Patient was evaluated by cardiology as well. I received multiple causes today because of headache because of which are pending a CAT scan of the head and spine which did not show any intracranial bleed. Headache is better today Constitutional: Denied any fatigue denied any fever. Cardio vascular: denied any chest pain, palpitations Gastrointestinal denied any nausea vomiting Pulmonary: Denied any shortness of breath cough Neurologic denied any new focal deficits All inpatient medications were reviewed and appropriate changes in these medications as dictated in the interval history and assessment and plan. Objective - Vital Signs Vital signs: Vital Signs Temp 97.8 F 09/28/18 11:24 Pulse 52 L 09/28/18 11:24 Resp 16 09/28/18 11:24 BP 191/79 09/28/18 11:24 Pulse Ox 95 09/28/18 08:04 Intake & Output 09/27/18 09/28/18 09/28/18 18:59 06:59 18:59 Intake Total 88.835 360 Balance 88.835 360 Weight 81.647 kg 82.4 kg Intake: Intake, IV Titration 88.835 Amount Heparin Sod,Pork in 0.45% 88.835 NaCl 25,000 unit In 0.45 % NaCl 1 250ml.bag @ 12 UNITS/KG/HR 9.798 mls/hr IV .Q24H [facility] Rx#: [id number] Oral 360 Other: # Voids 2 1 - Exam PHYSICAL EXAMINATION: GENERAL: The patient is alert and oriented x3, not in any acute distress. Well developed, well nourished. HEENT: Pupils are round and equally reacting to light. EOMI. No scleral icterus. No conjunctival pallor. Normocephalic, atraumatic. No pharyngeal erythema. No thyromegaly. CARDIOVASCULAR: S1 and S2 present. No murmurs, rubs, or gallops. PULMONARY: Chest is clear to auscultation, no wheezing or crackles. ABDOMEN: Soft, nontender, nondistended, normoactive bowel sounds. No palpable organomegaly. MUSCULOSKELETAL: No joint swelling or deformity. EXTREMITIES: No cyanosis, clubbing, or pedal edema. NEUROLOGICAL: Gross neurological examination did not reveal any focal deficits. SKIN: No rashes. - Labs CBC & Chem 7: 09/27/18 13:50 09/27/18 13:50 Labs: Abnormal Lab Results - Last 24 Hours (Table) 09/28/18 Range/Units 00:12 APTT 47.3 H (22.0-30.0) sec Assessment and Plan Plan: Accelerated hypertension, hypertensive urgency: Patient is presently on 100 mg total of losartan along with beta carly and will add chlorthalidone elevated until later in the day hoping that had blood pressure will come down and patient can be discharged but patient blood pressure didn't come down patient will be monitored overnight and increased dose of chlorthalidone possibly if her blood pressure comes down will discharge tomorrow Harris artery disease with previous stents -Fibro-myalgia hyperlipidemia -Hypertension -History of breast cancer patient is taking tamoxifen which she'll be done soon in few months. -DVT prophylaxis early ambulation
[2018-09-28] MEDS: hydrALAZINE HCL 50 MG TAB PO PRN ×2 (17:51→23:31)
--- NOTE | 2018-09-28 18:27 | ECHOF ---
Referral Reason:htn MEASUREMENTS -------- HEIGHT: 154.9 cm WEIGHT: 82.1 kg BP: 223/91 IVSd: 1.8 cm (0.6 - 1.1) LVIDd: 3.8 cm (3.9 - 5.3) LVPWd: 1.9 cm (0.6 - 1.1) IVSs: 1.8 cm LVIDs: 2.4 cm LVPWs: 2.0 cm LAESV Index (A-L): 36.76 ml/m Ao Diam: 2.6 cm (2.0 - 3.7) LA Diam: 3.6 cm (2.7 - 3.8) AV Cusp: 1.8 cm (1.5 - 2.6) EPSS: 0.3 cm MV E Manuel: 0.94 m/s MV DecT: 171 ms MV A Manuel: 1.04 m/s MV E/A Ratio: 0.91 AR PHT: 313 ms RAP: 15.00 mmHg RVSP: 46.04 mmHg MV EF SLOPE: 79.29 mm/s (70 - 150) MV EXCURSION: 14.58 mm (> 18.000) FINDINGS -------- Sinus rhythm. This was a technically good study. The left ventricular size is normal. There is severe concentric left ventricular hypertrophy. Ove rall left ventricular systolic function is normal with, an EF between 55 - 60 %. The right ventricle is normal in size. LA is moderately dilated 34-39 ml/m2 The right atrial size is normal. Interatrial and interventricular septum intact. Aortic valve is trileaflet and is mildly thickened. There is mild aortic regurgitation. The mitral valve leaflets are mildly thickened. Moderate mitral regurgitation is present. Mild tricuspid regurgitation present. There is mild pulmonary hypertension. The right ventricular systolic pressure, as measured by Doppler, is 46.04mmHg. There is no pulmonic regurgitation present. The aortic root size is normal. The inferior vena cava is mildly dilated. There is no pericardial effusion. CONCLUSIONS -------- 1. Sinus rhythm. 2. This was a technically good study. 3. The left ventricular size is normal. 4. There is severe concentric left ventricular hypertrophy. 5. Overall left ventricular systolic function is normal with, an EF between 55 - 60 %. 6. The right ventricle is normal in size. 7. LA is moderately dilated 34-39 ml/m2 8. The right atrial size is normal. 9. Interatrial and interventricular septum intact. 10. Aortic valve is trileaflet and is mildly thickened. 11. There is mild aortic regurgitation. 12. The mitral valve leaflets are mildly thickened. 13. Moderate mitral regurgitation is present. 14. Mild tricuspid regurgitation present. 15. There is mild pulmonary hypertension. 16. The right ventricular systolic pressure, as measured by Doppler, is 46.04mmHg. 17. There is no pulmonic regurgitation present. 18. The aortic root size is normal. 19. The inferior vena cava is mildly dilated. 20. There is no pericardial effusion. OFFICE SYSTEMS TECHNOLOGY INSTRUCTOR: Alanis Esparza RDCS
[2018-09-28] MEDS: PANTOPRAZOLE 40 MG TABLET PO SCH (23:31)
[2018-09-29] MEDS: PANTOPRAZOLE 40 MG TABLET PO SCH (05:57)
[2018-09-29] MEDS: LOSARTAN 50 MG TAB PO SCH (06:45)
[2018-09-29] MEDS: NADOLOL 20 MG TAB PO SCH (08:35)
[2018-09-29] MEDS: ATORVASTATIN 40 MG TAB PO SCH (08:35)
[2018-09-29] MEDS: ASPIRIN 81 MG PO SCH (08:35)
[2018-09-29] MEDS: ACETAMINOPHEN TAB 325 MG TAB PO PRN (08:38)
[2018-09-29] MEDS ORDERED: TAMOXIFEN 10 MG TAB PO SCH (09:00)
[2018-09-29] MEDS ORDERED: CHLORTHALIDONE 25 MG TAB PO SCH (09:00)
[2018-09-29] MEDS ORDERED: amLODIPine 5 MG TAB PO SCH (11:00)
[2018-09-29 12:04] VITALS: BP 175/83; PULSE 53; TEMP 98.7
--- NOTE | 2018-09-29 12:51 | P.PN ---
Subjective Progress Note Date: 09/29/18 This is a pleasant 77-year-old female who follows regularly with Dr. Euceda in the office. She has known history of hypertension, hyperlipidemia, coronary artery disease with prior stenting of the proximal and mid right coronary artery and ostium of the right coronary artery in 2016. She states in general she just wasn't feeling well, feeling tired, having mild headache she checked her blood pressure at home which was noted to be greater than 200 systolic, she states that she relaxed took her blood pressure pill and in spite of that the blood pressure remained high she came to the emergency room for further evaluation and treatment. Patient was on Corgard and Benicar at home, however for the past 2 years she has not taken the Benicar because her pharmacy is not able to obtain it. Blood pressure on arrival here 223/80 with a heart rate in the 50s, 95% on room air. Blood pressure this morning 223/90 with a heart rate in the 50s to 60s, 95% on room air. White blood cell count 11.3, hemoglobin 12.8, platelet count 227. Sodium 143, potassium 4.0, BUN 15 and creatinine 0.6. Magnesium 1.9. Troponins negative 3, BNP 1020. At the time of my examination this morning, patient is complaining of mild headache. A CT of the head and cervical spine was performed which did not reveal any acute hemorrhage or mass effect. No acute fracture or subluxation. A 2.5 cm lesion in the left thyroid noted. EKG shows a sinus bradycardia. Chest x-ray shows pulmonary fibrosis and mild cardiomegaly. 09/29/2018 Patient was seen and examined this morning, overall feeling significantly better. Blood pressure 174/82 with a heart rate in the 50s, 93% on room air. Echocardiogram with Doppler study revealed a normal left ventricular systolic function, moderate mitral regurgitation. Norvasc 5 mg daily will be added to her medication regime today. Objective - Vital Signs Vital signs: Vital Signs Temp 98.7 F 09/29/18 12:00 Pulse 53 L 09/29/18 12:00 Resp 16 09/29/18 12:00 BP 175/83 09/29/18 12:00 Pulse Ox 93 L 09/29/18 12:00 Intake & Output 09/28/18 09/29/18 09/29/18 18:59 06:59 18:59 Intake Total 1500 300 240 Balance 1500 300 240 Weight 82.6 kg Intake: Intake, IV Titration 900 Amount Sodium Chloride 0.9% 1, 900 000 ml @ 100 mls/hr IV . Q10H [facility] Rx#:[id number] Oral 600 300 240 Other: Voiding Method Toilet # Voids 1 1 1 # Bowel Movements 1 - Exam PHYSICAL EXAMINATION: GENERAL: 77-year-old female in no acute distress at the time of my examination HEENT: Head is atraumatic, normocephalic. Pupils equal, round. Sclera anicteric. Conjunctiva are clear. Mucous membranes of the mouth are moist. Neck is supple. There is no elevated jugular venous pressure. No carotid bruit is heard. HEART EXAMINATION: S1 and S2 1 systolic ejection murmur is heard CHEST EXAMINATION: Lungs are clear to auscultation and precussion. No chest wall tenderness is noted on palpation or with deep breathing. ABDOMEN: Soft, nontender. Bowel sounds are heard. No organomegaly noted. EXTREMITIES: 2+ peripheral pulses with no evidence of peripheral edema and no calf tenderness noted. NEUROLOGIC patient is awake, alert and oriented 3 . - Labs CBC & Chem 7: 09/27/18 13:50 09/27/18 13:50 Assessment and Plan Plan: Assessment and plan #1 hypertensive urgency #2 known history of coronary artery disease with prior RCA stenting in 2016 #3 hyperlipidemia Plan Echocardiogram with Doppler study revealed a normal left ventricular systolic function with moderate mitral regurgitation. Norvasc 5 mg daily will be added to the patient's medication regime and if the blood pressure remained stable she may be able to be discharged home later today to follow-up in the office post discharge. DNP note has been reviewed, I agree with a documented findings and plan of care. Patient was seen and examined.
--- NOTE | 2018-09-29 14:28 | P.DS ---
Providers Date of admission: 09/27/18 16:40 Attending physician: Prosper Eisenberg Consults: 09/27/18 16:20 Consult Physician Urgent Consulting Provider: Kamron Euceda Consult Reason/Comments: hypertensive emergency, Unstable Angina Do you want consulting provider notified?: Yes Primary care physician: Alanis Choe MD Hospital Course: 77-year-old the female was admitted secondary to accelerated hypertension and hypertensive urgency. Patient does not have any signs or symptoms of end organ damage at this time patient does not have hypertensive emergency although patient blood pressure remains significantly high multiple medication changes were made because of which I'll continue to monitor 1 more night here and patient will be discharged tomorrow if her blood pressure is better tomorrow. Patient was evaluated by cardiology as well. I received multiple causes today because of headache because of which are pending a CAT scan of the head and spine which did not show any intracranial bleed. Headache is better today 09/29/2018 Patient blood pressure remains high but that has come down. She'll be discharged on amlodipine 5 mg along with the the regimen that was started yesterday which is CLEO inhibitor plus diuretic therapy along with beta carly. Probably not a good idea to change the dosing of amlodipine until after a week as peak action of amlodipine is 1 week. Patient most probably will require a higher dose of Norvasc. PHYSICAL EXAMINATION: GENERAL: The patient is alert and oriented x3, not in any acute distress. Well developed, well nourished. HEENT: Pupils are round and equally reacting to light. EOMI. No scleral icterus. No conjunctival pallor. Normocephalic, atraumatic. No pharyngeal erythema. No thyromegaly. CARDIOVASCULAR: S1 and S2 present. No murmurs, rubs, or gallops. PULMONARY: Chest is clear to auscultation, no wheezing or crackles. ABDOMEN: Soft, nontender, nondistended, normoactive bowel sounds. No palpable organomegaly. MUSCULOSKELETAL: No joint swelling or deformity. EXTREMITIES: No cyanosis, clubbing, or pedal edema. NEUROLOGICAL: Gross neurological examination did not reveal any focal deficits. SKIN: No rashes. Assessment and Plan Plan: Accelerated hypertension, hypertensive urgency: Improved blood pressure. 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 -DVT prophylaxis early ambulation Patient Condition at Discharge: Good Plan - Discharge Summary New Discharge Prescriptions: New Losartan [Cozaar] 100 mg PO DAILY #30 tab Chlorthalidone [Hygroton] 50 mg PO DAILY #30 tab amLODIPine [Norvasc] 5 mg PO DAILY #30 tab Continue Cholecalciferol [Vitamin D3 (25 Mcg = 1000 Iu)] 2,000 unit PO DAILY Aspirin 81 mg PO DAILY Tamoxifen [Nolvadex] 20 mg PO DAILY Nadolol [Corgard] 120 mg PO DAILY Multivit with Calcium,Iron,Min [Women's Daily Multivitamin] 1 tab PO DAILY Calcium Carbonate/Vitamin D3 [Calcium 600-Vit D3 200 Tablet] 1 tab PO BID Atorvastatin Calcium [Lipitor] 40 mg PO DAILY Melatonin 10 mg PO HS Glucosam/Damion-Msm1/C/Johann/Bosw [Glucosamine-Chondroitin Tablet] 1 tab PO BID Fish Oil/Dha/Epa [Fish Oil 1,200 mg Fish Oil] 1 cap PO DAILY Pantoprazole [Protonix] 40 mg PO DAILY Discontinued Olmesartan [Benicar] 20 mg PO DAILY Discharge Medication List Aspirin 81 mg PO DAILY 01/16/16 [History] Calcium Carbonate/Vitamin D3 [Calcium 600-Vit D3 200 Tablet] 1 tab PO BID 01/16/16 [History] Cholecalciferol [Vitamin D3 (25 Mcg = 1000 Iu)] 2,000 unit PO DAILY 01/16/16 [History] Multivit with Calcium,Iron,Min [Women's Daily Multivitamin] 1 tab PO DAILY 01/16/16 [History] Nadolol [Corgard] 120 mg PO DAILY 01/16/16 [History] Tamoxifen [Nolvadex] 20 mg PO DAILY 01/16/16 [History] Atorvastatin Calcium [Lipitor] 40 mg PO DAILY 09/27/18 [History] Fish Oil/Dha/Epa [Fish Oil 1,200 mg Fish Oil] 1 cap PO DAILY 09/27/18 [History] Glucosam/Damion-Msm1/C/Johann/Bosw [Glucosamine-Chondroitin Tablet] 1 tab PO BID 09/27/18 [History] Melatonin 10 mg PO HS 09/27/18 [History] Pantoprazole [Protonix] 40 mg PO DAILY 09/27/18 [History] Chlorthalidone [Hygroton] 50 mg PO DAILY #30 tab 09/29/18 [Rx] Losartan [Cozaar] 100 mg PO DAILY #30 tab 09/29/18 [Rx] amLODIPine [Norvasc] 5 mg PO DAILY #30 tab 09/29/18 [Rx] Follow up Appointment(s)/Referral(s): Alanis Choe MD [Primary Care Provider] - 10/02/18 11:20 am (Friday) Kamron Euceda MD [STAFF PHYSICIAN] - 10/13/18 11:00 am () Ambulatory/Diagnostic Orders: Basic Metabolic Panel [LAB.AMB] Time Frame: 3 Days, Location: None Selected Patient Instructions/Handouts: DASH Eating Plan (DC), Hypertension (DC) Discharge Disposition: HOME SELF-CARE
== END 2018-09-29 13:37 | disposition home or self-care (01) | DRG 305 ==
LOC: EC 12:49 → 3SCARD 16:40
PROVIDERS: ADMIT Internal Medicine; ATTEND Internal Medicine
DX: I16.0 Hypertensive urgency (principal); I25.110 Atherosclerotic heart disease of native coronary artery with unstable angina pectoris; C50.912 Malignant neoplasm of unspecified site of left female breast; I10 Essential (primary) hypertension; E78.5 Hyperlipidemia, unspecified; M79.7 Fibromyalgia; M19.90 Unspecified osteoarthritis, unspecified site; Z79.82 Long term (current) use of aspirin; Z79.818 Long term (current) use of other agents affecting estrogen receptors and estrogen levels; Z79.02 Long term (current) use of antithrombotics/antiplatelets; Z79.899 Other long term (current) drug therapy; Z92.3 Personal history of irradiation; Z95.5 Presence of coronary angioplasty implant and graft; Z98.890 Other specified postprocedural states; Z90.710 Acquired absence of both cervix and uterus; Z87.81 Personal history of (healed) traumatic fracture; Z87.891 Personal history of nicotine dependence; Z88.8 Allergy status to other drugs, medicaments and biological substances; Z83.2 Family history of diseases of the blood and blood-forming organs and certain disorders involving the immune mechanism; Z82.49 Family history of ischemic heart disease and other diseases of the circulatory system; Z82.3 Family history of stroke; Z80.8 Family history of malignant neoplasm of other organs or systems; Z83.49 Family history of other endocrine, nutritional and metabolic diseases; I34.0 Nonrheumatic mitral (valve) insufficiency; J84.10 Pulmonary fibrosis, unspecified
CPT/HCPCS: 36415; 70450; 71046; 72125; 80053; 80061; 83735; 83880; 84443; 84484; 85025; 85610; 85730; 93005; 93306; 94760; 96361; 96365; 96366; 96375; 96376; 99285

== ENCOUNTER → 2018-11-10 | Outpatient (CLI) | payer MEDICARE ==
[2018-11-10 10:22] LABS: Basophils # (A) 0.1 k/uL (0-0.2); Basophils % (A) 1 %; Eosinophils # (A) 0.3 k/uL (0-0.7); Eosinophils % (A) 3 %; HCT 37.3 % (34.0-46.0); HGB 12.5 gm/dL (11.4-16.0); Lymphocytes # (A) 2.5 k/uL (1.0-4.8); Lymphocytes % (A) 26 %; MCH 30.6 pg (25.0-35.0); MCHC 33.5 g/dL (31.0-37.0); MCV 91.3 fL (80.0-100.0); Mean Platelet Volume 7.7; Monocytes # (A) 0.5 k/uL (0-1.0); Monocytes % (A) 5 %; Neutrophils # (A) 5.9 k/uL (1.3-7.7); Neutrophils % (A) 63 %; Platelet Count 255 k/uL (150-450); RBC 4.08 m/uL (3.80-5.40); RDW 13.4 % (11.5-15.5); WBC 9.4 k/uL (3.8-10.6)
[2018-11-10 10:26] LABS: Appearance,Urine Cloudy (Clear); Bacteria,Urine Many /hpf; Bilirubin,Urine Negative (Negative); Blood,Urine Negative (Negative); Color,Urine Yellow; Glucose,Urine (UA) Negative (Negative); Hyaline Casts,Urine 2 /lpf (0-2); Ketones,Urine Negative (Negative); Leukocyte Esterase,Urine Trace (Negative); Mucus,Urine Rare /hpf; Nitrite,Urine Negative (Negative); PH, Urine 5.5 (5.0-8.0); Protein,Urine Negative (Negative); RBC,Urine 2 /hpf (0-5); Specific Gravity,Urine 1.019 (1.001-1.035); Squamous Epithelial Cell,Urine 7 /hpf (0-4); Urobilinogen,Urine <2.0 mg/dL (<2.0); WBC,Urine 2 /hpf (0-5)
[2018-11-10 10:39] LABS: INR 0.9 (<1.2); Prothrombin Time 9.7 sec (9.0-12.0)
[2018-11-10 10:52] LABS: Partial Thromboplastin Time 21.6 sec (22.0-30.0)
[2018-11-10 15:44] LABS: African American GFR (CKD) 94.8 (60.0-200.0); Albumin 3.9 g/dL (3.80-4.90); Albumin/Globulin Ratio 1.95 (1.60-3.17); Anion Gap 9.9 mmol/L (4.00-12.00); BUN/Creat Ratio 25.71 Ratio (12.00-20.00); Calcium 9.2 mg/dL (8.7-10.3); Carbon Dioxide 31.1 mmol/L (21.6-31.8); Potassium 3.8 mmol/L (3.5-5.5); Total Bilirubin 0.4 mg/dL (0.3-1.2); Total Protein 5.9 g/dL (6.2-8.2)
== END | disposition home or self-care (01) ==
LOC: LABWHC1 09:51
PROVIDERS: ATTEND Orthopaedic Surgery
DX: Z01.812 Encounter for preprocedural laboratory examination (principal)
CPT/HCPCS: 36415; 80053; 81001; 85025; 85610; 85730; 87070

== ENCOUNTER 2018-11-23 05:32 | Day surgery (SDC) | payer MEDICARE ==
[2018-11-19 08:46] VITALS: BMI 33.5
[~2018-11-23 05:32] MED LIST: ACETAMINOPHEN TAB 500 MG TAB PO ONE; MELOXICAM 7.5 MG TAB PO ONE; TRANEXAMIC ACID 1,000 MG in SODIUM CHLORIDE 0.9% 100 ML IVPB ONE
[2018-11-23] MEDS ORDERED: HYDROmorphone 0.5 MG/0.5 ML SYRINGE IVP PRN ×4 (05:37→06:59)
[2018-11-23] MEDS ORDERED: ONDANSETRON 4 MG/2 ML VIAL IVP ONE (05:37)
[2018-11-23] MEDS ORDERED: MIDAZOLAM 2 MG/2 ML VIAL IV PRN (05:37)
[2018-11-23] MEDS ORDERED: DEXAMETHASONE SOD PHOSPHATE 10 MG/ML 1 ML VIAL IV ONE (05:37)
[2018-11-23] MEDS: LACTATED RINGERS 1,000 ML IV SCH (05:58)
[2018-11-23] MEDS ORDERED: ROPIVACAINE 246.25 MG, EPINEPHrine 0.5 MG, KETOROLAC 30 MG, cloNIDine HCL/PF 80 MCG, WA... MISCELLANE ONE ×5 (06:08)
[2018-11-23] MEDS ORDERED: fentaNYL (PF) 50 MCG/ML 2 ML AMP IVP ONE (06:37)
[2018-11-23] MEDS ORDERED: BISACODYL 10 MG SUPP RECTAL PRN (06:59)
[2018-11-23] MEDS ORDERED: hydrOXYzine PAMOATE 25 MG CAP PO PRN (06:59)
[2018-11-23] MEDS ORDERED: ONDANSETRON 4 MG/2 ML VIAL IVP PRN (06:59)
[2018-11-23] MEDS ORDERED: HYDROcodone/APAP 5-325MG 1 EACH TAB PO PRN (06:59)
[2018-11-23] MEDS ORDERED: NA PHOS,M-B/NA PHOS,DI-BA 133 ML ENEMA RECTAL PRN (06:59)
[2018-11-23] MEDS ORDERED: DIAZEPAM 5 MG TAB PO PRN (06:59)
[2018-11-23] MEDS ORDERED: NALOXONE 0.4 MG/ML 1 ML VIAL IV PRN (06:59)
[2018-11-23] MEDS ORDERED: MAGNESIUM HYDROXIDE 2,400 MG/10 ML CUP PO PRN (06:59)
[2018-11-23] MEDS ORDERED: TRANEXAMIC ACID 1,000 MG/10 ML VIAL ONE (07:00)
[2018-11-23] MEDS ORDERED: MIDAZOLAM 2 MG/2 ML VIAL ONE (07:00)
[2018-11-23] MEDS ORDERED: SODIUM CHLORIDE 0.9% 100 ML BAG ONE (07:00)
[2018-11-23] MEDS ORDERED: PROPOFOL 10 MG/ML 20 ML VIAL IV ONE (07:00)
[2018-11-23] MEDS ORDERED: fentaNYL (PF) 50 MCG/ML 2 ML AMP ONE (07:00)
[2018-11-23] MEDS ORDERED: PHENYLEPHRINE-0.9% NACL SYG 1 MG/10 ML SYRINGE ONE (07:00)
[2018-11-23] MEDS ORDERED: ROPIVACAINE 0.2%-NS ON-Q PUMP 1,090 MG, EMPTY PAIN BALL 1 EACH MISCELLANE PRN (07:17)
--- NOTE | 2018-11-23 07:20 | P.ANPRN ---
Procedure Note - Anesthesia - Nerve Block Performed Left Adductor Canal Infusion Time Out Performed: Yes Date of Procedure: 11/23/18 Procedure Start Time: 06:35 Location of Patient Procedure: PreOp Indication: Acute Post-Operative Pain Specifically requested for management of pain by DrKristy: Daron Long Sedation Type: Sedate with meaningful contact maintained Preparation: Sterile Prep Position: Supine Catheter Depth at Skin (cm): 8 Catheter: Indwelling Needle Types: Pajunk Needle Gauge: 18 Technique: Ultrasound Injectate: 0.5% Ropivacaine (see comment for volume) (20 cc) Blood Aspirated: No Pain Paresthesia on Injection Noted: No Resistance on Injection: Normal Events: Uneventful and Well Tolerated
[2018-11-23] MEDS ORDERED: ceFAZolin 3,000 MG in SODIUM CHLORIDE 0.9% IRRIGATIO 3,000 ML IRRIGATION ONE (07:40)
[2018-11-23] MEDS ORDERED: LACTATED RINGERS 1,000 ML IV ONE (08:37)
--- NOTE | 2018-11-23 08:37 | P.OP ---
Date of Procedure: 11/23/18 Preoperative Diagnosis: Severe osteoarthritis left knee Postoperative Diagnosis: Severe osteoarthritis left knee Procedure(s) Performed: Left total knee arthroplasty with Visionaire Implants: Romo and Nephew Journey II CR Oxinium cruciate retaining femoral component size 5, left Romo & Nephew Journey left nonporous tibial baseplate size 4 Romo & Nephew Journey II, XLPE Deep Dished articular insert, size 10 mm, Size 3-4 left Romo & Nephew Journey BCS resurfacing oval patellar component, 29 mm Romo & Nephew visionaire adaptive guide All components were cemented using Palacos R bone cement.. The articulation is Oxinium on polyethylene. Anesthesia: spinal Surgeon: Daron Long Dial Buffer #1: Sarah Jaramillo Estimated Blood Loss (ml): 50 Pathology: other (Bone and cartilage) Condition: stable Disposition: PACU Indications for Procedure: After failure of conservative treatment we discussed the surgical and nonsurgical treatment options at length. Patient wishes to proceed with a total knee arthroplasty. Complications specific to this procedure were discussed at length, including but not limited to infection, bleeding, stiffness, and nerve injury. Patient is aware of all these complications and informed consent was obtained Operative Findings: The operative findings are consistent with severe osteoarthritis of the left knee Description of Procedure: Patient was seen in the preoperative area consent was reviewed and operative site was marked with a skin marker. An adductor canal pain catheter was placed by anesthesia in the preoperative area. Patient was then brought to the operating room and given preoperative antibiotics intravenously. A spinal anesthetic was administered by the anesthesia department. A tourniquet was placed on the upper thigh and the lower extremity was prepped and draped in usual sterile fashion. A gram of transexamic acid was given. A universal timeout was then performed which confirmed the patient's name, surgical site, ALLERGIES, and consent. The lower extremity was then exsanguinated and tourniquet was inflated to 250 mmHg. A standard and anterior midline approach to the knee was performed. The skin and subcutaneous tissue was dissected down to the patellar tendon. A medial parapatellar arthrotomy was then performed. The knee was then extended, the patellar was everted, and the knee was again flexed. Anterior horns of both menisci were excised, and a release was performed to the posterior medial aspect of the knee. On gross visual inspection, there was complete loss of articular cartilage in the medial and patellofemoral joint spaces. There was also significant cartilage damage in the lateral compartment. There were multiple periarticular osteophytes. The distal femoral adaptive guide was then placed in the predetermined pin holes were drilled. The distal femur was then cut through the guide. The guide was then removed and the cut was checked for accuracy. The appropriate 5-in-1 cutting block was then pinned in place using the predrilled holes through the adaptive guide. The anterior condyles were cut without notching. The posterior and chamfer cuts were performed while protecting the collateral ligaments. The cutting block was then removed, and the femoral canal was plugged with autologous bone. Attention was then directed to the tibia. The remaining ACL was removed with a Ronguer, and the tibia was then gently subluxed forward with a large bent knee retractor. Any remaining menisci was excised. The posterior lateral corner was cauterized in order to cauterize the lateral geniculate artery. The tibial adaptive guide was then placed and guide pins were inserted. The Proximal tibia was then cut and sized. Next trials were then placed with the appropriate-sized insert. The knee was able to fully extend and flex to 130 and was stable throughout all range of motion. The knee was then extended, patella everted. Patella was then measured, and then using an osteotomy guide, the patella was cut at the appropriate level. The patella was then measured and drilled and the patella trial was then placed. The knee was then taken through range of motion with the patella trial and the patella tracked normally. The knee was then extended patella trial was then removed and the patella was everted. Knee was then flexed and lug holes were drilled through the femoral trial and the femoral trial was then removed. The tibial was then exposed, and the tibial broach guide was then pinned in place after it was set for the appropriate rotation to allow for the most coverage without overhang. The tibia was then reamed and broached. The cut surfaces of bone were then irrigated with pulsatile lavage. The posterior structures were injected with the ropivacaine solution. The knee was also irrigated with Irrisept solution. The components were then opened, the cement was mixed, and the components were then cemented in place. The cement was allowed to harden with the knee in full extension. While the cement was hardening, the remaining soft tissues were then injected with a ropivacaine solution, which consisted of 246.25 mg of ropivacaine, 0.5 mg of epinephrine, 30 mg of Toradol, 80 g of clonidine, and 48.45 mL of sterile water, for a total of 100 mL of fluid injected. After the cemented hardened. The tourniquet was released, and hemostasis was obtained. A second gram of transexamic acid was given. The knee was again irrigated. The knee was again taken through range of motion and found to be stable throughout all range of motion of 0-130, and the patella tracked normally. The fascia was then closed with #2 strata fix suture. The subcutaneous tissue was closed with 3-0 Vicryl and 3-0 strata fix. Dermabond glue was used for the skin and placed with the knee in flexion. The patient was placed in a sterile silver dressing. Patient was then transferred to recovery room in stable condition. The assistant statistician JERICA Taveras was required due the complexity surgery and the need for a skilled surgical processor. She assisted in positioning, draping, retraction, and closure of the wound.
[2018-11-23] MEDS ORDERED: MELOXICAM 7.5 MG TAB PO SCH (09:00)
--- NOTE | 2018-11-23 09:26 | XR ---
EXAMINATION TYPE: XR knee limited LT DATE OF EXAM: 11/23/2018 CLINICAL HISTORY: Left knee pain and arthritis status post total knee replacement. TECHNIQUE: Portable AP and crosstable lateral views of the left knee are obtained immediately postop eratively. COMPARISON: None FINDINGS: Metallic hardware from total left knee arthroplasty is seen and appears satisfactory in al ignment and position. There is evidence of recent surgery with diffuse subcutaneous gas and soft tis terrence swelling noted. IMPRESSION: METALLIC HARDWARE FROM TOTAL LEFT KNEE ARTHROPLASTY IS SATISFACTORY IN ALIGNMENT.
[2018-11-23] MEDS: SODIUM CHLORIDE 0.9% 1,000 ML IV SCH ×2 (13:58→21:39)
[2018-11-23] MEDS ORDERED: SENNOSIDES-DOCUSATE SODIUM 1 EACH TAB PO SCH (21:00)
[2018-11-23] MEDS: ASPIRIN 325 MG TAB PO SCH (21:38)
[2018-11-23] MEDS: HYDROcodone/APAP 5-325MG 1 EACH TAB PO PRN (21:38)
[2018-11-24] MEDS: HYDROcodone/APAP 5-325MG 1 EACH TAB PO PRN ×2 (04:05→09:44)
[2018-11-24] MEDS: LACTATED RINGERS 1,000 ML IV SCH (04:20)
[2018-11-24 07:20] LABS: Basophils # (A) 0.1 k/uL (0-0.2); Basophils % (A) 0 %; Eosinophils # (A) 0.1 k/uL (0-0.7); Eosinophils % (A) 0 %; HGB 11.2 gm/dL (11.4-16.0); Lymphocytes # (A) 2.7 k/uL (1.0-4.8); Lymphocytes % (A) 14 %; MCH 30.4 pg (25.0-35.0); MCHC 33.1 g/dL (31.0-37.0); MCV 91.9 fL (80.0-100.0); Mean Platelet Volume 7.7; Monocytes % (A) 5 %; Neutrophils # (A) 15.8 k/uL (1.3-7.7); Neutrophils % (A) 80 %; Platelet Count 246 k/uL (150-450); RDW 13.1 % (11.5-15.5); WBC 19.8 k/uL (3.8-10.6)
[2018-11-24 07:34] VITALS: BP 117/54; PULSE 54; RESP 16; TEMP 98
[2018-11-24] MEDS: ASPIRIN 325 MG TAB PO SCH (07:44)
[2018-11-24] MEDS ORDERED: MELOXICAM 7.5 MG TAB PO SCH (09:00)
--- NOTE | 2018-11-24 09:22 | P.DS ---
Providers Expected date of discharge: 11/24/18 Attending physician: Daron Long Consults: 11/23/18 06:59 Consult Physician Routine Consulting Provider: Prosper Eisenberg Consult Reason/Comments: medical management Do you want consulting provider notified?: Yes Primary care physician: Alanis Choe MD - Discharge Diagnosis(es) (1) Osteoarthritis of left knee Current Visit: Yes Status: Acute (2) Status post total knee replacement, left Current Visit: Yes Status: Acute Hospital Course: This is a 78-year-old female with known history of degenerative arthritis of the left knee. The patient presents for evaluation. After discussion and considera tion patient elects to proceed with total knee arthroplasty. The patient is seen preoperatively by Dr. Long and medically cleared for surgery by their primary care physician. Patient is admitted to [facility] on 11/23/2018 for total knee arthroplasty. The procedures performed without complication or sequelae. The patient is doing well postoperatively. Labs and vital signs are stable on day of discharge. On day of discharge patient's knee incision is healing well. There is minimal erythema. There is no drainage noted at this time. There is minimal soft tissue swelling to the knee. Patient has full foot and ankle motion without difficulty or pain. Calf is soft and nontender to palpation. Neurovascular status to the left lower extremity is intact. Patient is discharged home in good condition. Opioid start talking form is reviewed and signed at patient bedside. Please see med rec for accurate list of home medications. Plan - Discharge Summary Discharge Rx Participant: Yes New Discharge Prescriptions: New Aspirin 325 mg PO BID #60 tab HYDROcodone/APAP 5-325MG [[place] 5-325] 1 - 2 tab PO Q6HR PRN #56 tab PRN Reason: Pain Sennosides [Senokot] 1 tab PO BID #60 tablet No Action Cholecalciferol [Vitamin D3 (25 Mcg = 1000 Iu)] 2,000 unit PO DAILY Aspirin 81 mg PO DAILY Tamoxifen [Nolvadex] 20 mg PO DAILY Nadolol [Corgard] 120 mg PO DAILY Multivit with Calcium,Iron,Min [Women's Daily Multivitamin] 1 tab PO DAILY Calcium Carbonate/Vitamin D3 [Calcium 600-Vit D3 200 Tablet] 1 tab PO BID Atorvastatin Calcium [Lipitor] 40 mg PO DAILY Glucosam/Damion-Msm1/C/Johann/Bosw [Glucosamine-Chondroitin Tablet] 1 tab PO BID Fish Oil/Dha/Epa [Fish Oil 1,200 mg Fish Oil] 1 cap PO DAILY Pantoprazole [Protonix] 40 mg PO DAILY Losartan [Cozaar] 100 mg PO DAILY #30 tab Chlorthalidone [Hygroton] 50 mg PO DAILY #30 tab amLODIPine [Norvasc] 2.5 mg PO DAILY Discharge Medication List Aspirin 81 mg PO DAILY 01/16/16 [History] Calcium Carbonate/Vitamin D3 [Calcium 600-Vit D3 200 Tablet] 1 tab PO BID 01/16/16 [History] Cholecalciferol [Vitamin D3 (25 Mcg = 1000 Iu)] 2,000 unit PO DAILY 01/16/16 [History] Multivit with Calcium,Iron,Min [Women's Daily Multivitamin] 1 tab PO DAILY 01/16/16 [History] Nadolol [Corgard] 120 mg PO DAILY 01/16/16 [History] Tamoxifen [Nolvadex] 20 mg PO DAILY 01/16/16 [History] Atorvastatin Calcium [Lipitor] 40 mg PO DAILY 09/27/18 [History] Fish Oil/Dha/Epa [Fish Oil 1,200 mg Fish Oil] 1 cap PO DAILY 09/27/18 [History] Glucosam/Damion-Msm1/C/Johann/Bosw [Glucosamine-Chondroitin Tablet] 1 tab PO BID 09/27/18 [History] Pantoprazole [Protonix] 40 mg PO DAILY 09/27/18 [History] Chlorthalidone [Hygroton] 50 mg PO DAILY #30 tab 09/29/18 [Rx] Losartan [Cozaar] 100 mg PO DAILY #30 tab 09/29/18 [Rx] amLODIPine [Norvasc] 2.5 mg PO DAILY 11/19/18 [History] Aspirin 325 mg PO BID #60 tab 11/24/18 [Rx] HYDROcodone/APAP 5-325MG [[place] 5-325] 1 - 2 tab PO Q6HR PRN #56 tab 11/24/18 [Rx] Sennosides [Senokot] 1 tab PO BID #60 tablet 11/24/18 [Rx] Follow up Appointment(s)/Referral(s): [facility], [NON-STAFF] - Daron Long DO [Doctor of Osteopathic Medicine] - 2 Weeks Ambulatory/Diagnostic Orders: Continuous Passive Motion (CPM) Machine [DME.AMB1] Time Frame: 3 Weeks, Location: None Selected Activity/Diet/Wound Care/Special Instructions: Weightbearing as tolerated with a walker. CPM 5-6h daily. Leave dressing intact. May be removed by home care nurse or by patient in 10 days. May shower with dressing on. Please follow up with [facility] and call with any questions or concerns, . Discharge Disposition: HOME WITH HOME HEALTH SERVICES
--- NOTE | 2018-11-24 09:30 | P.PN ---
Progress Note - Text Anesthesia POD 657. Patient is status post left TKR under spinal anesthesia with a left adductor canal catheter placed for postoperative pain relief. With ropivacaine 0.2% running at 8 cc's per hour, the patient's VAS is (0, 2). Catheter site is clean dry and intact.
--- NOTE | 2018-11-24 13:26 | P.CONS ---
History of Present Illness - Reason for Consult Leukocytosis, recommendations regarding antihypertensive medications - History of Present Illness His is a pleasant 78-year-old female was admitted for right knee arthroplasty sepsis underwent surgery patient to call her antidepressant medications patient is actually on 4 of those medications including calcium channel carly, beta carly and the losartan, and diuretic therapy. Patient did take all her medications as today and her blood pressure is low normal at this time. I believe patient can take care of 3 of these medications except for losartan at home. Patient wanted to be discharged today doing well can be discharged although I do not have enough time to titrate I give recommendations regarding antidepressant medications although her blood pressure expected to stay low for Couple days because of which asked her to hold off on losartan and check the blood pressure at home and if he starts going up which is expected , then she can start taking losartan or weight until she sees her primary doctor. Patient can resume her amlodipine diuretic therapy and the beta carly starting tomorrow. Patient does have history of breast cancer is on tamoxifen breast cancer is in remission. Patient doesn't have any signs or symptoms of sepsis no cough does have leukocytosis which is reactive from surgery no dysuria. Review of Systems REVIEW OF SYSTEMS: CONSTITUTIONAL: No fever, no malaise, no fatigue. HEENT: No recent visual problems or hearing problems. Denied any sore throat. CARDIOVASCULAR: No chest pain, orthopnea, PND, no palpitations, no syncope. PULMONARY: No shortness of breath, no cough, no hemoptysis. GASTROINTESTINAL: No diarrhea, no nausea, no vomiting, no abdominal pain. NEUROLOGICAL: No headaches, no weakness, no numbness. HEMATOLOGICAL: Denies any bleeding or petechiae. GENITOURINARY: Denies any burning micturition, frequency, or urgency. MUSCULOSKELETAL/RHEUMATOLOGICAL: Denies any joint pain, swelling, or any muscle pain. ENDOCRINE: Denies any polyuria or polydipsia. The rest of the 14-point review of systems is negative. Past Medical History Past Medical History: Cancer, GERD/Reflux, Hyperlipidemia, Hypertension, Osteoarthritis (OA) Additional Past Medical History / Comment(s): occasional vertigo @times, L breast cancer 2013 with lumpectomy and radiation, admission in September for blood pressure-had med changes & fine now History of Any Multi-Drug Resistant Organisms: None Reported Past Surgical History: Bladder Surgery, Breast Surgery, Heart Catheterization With Stent, Hysterectomy, Orthopedic Surgery Additional Past Surgical History / Comment(s): 01/17/16 PTCA with stent prox/mid RCA and ostium RCA, bladder suspension, left lumpectomy, jeannine. knee arthroscopic surg., R foot surg for fx repair, bunionectomy and hammer toe., infected abscess removed from upper abdomen Past Anesthesia/Blood Transfusion Reactions: Postoperative Nausea & Vomiting (PONV) Additional Past Anesthesia/Blood Transfusion Reaction / Comm: only happened once Date of Last Stent Placement:: 01/17/16 Past Psychological History: No Psychological Hx Reported Additional Psychological History / Comment(s): Pt resides alone. She is independent. Smoking Status: Former smoker Past Alcohol Use History: Occasional Additional Past Alcohol Use History / Comment(s): quit smoking 35 yrs. ago, smoked for 20 yrs. Past Drug Use History: None Reported - Past Family History Daughter(s) Family Medical History: Deep Vein Thrombosis (DVT) Father Family Medical History: Cancer, Myocardial Infarction (MD) Additional Family Medical History / Comment(s): Father was obese. He had skin cancer. He of a MD in his early 70's. Mother Family Medical History: CVA/TIA, Hypertension Additional Family Medical History / Comment(s): Mother at the age of 59yrs from a CVA Medications and Allergies Home Medications Medication Instructions Recorded Confirmed Type Aspirin 81 mg PO DAILY 01/16/16 11/19/18 History Calcium Carbonate/Vitamin D3 1 tab PO BID 01/16/16 11/19/18 History [Calcium 600-Vit D3 200 Tablet] Cholecalciferol [Vitamin D3 (25 2,000 unit PO DAILY 01/16/16 11/19/18 History Mcg = 1000 Iu)] Multivit with Calcium,Iron,Min 1 tab PO DAILY 01/16/16 11/19/18 History [Women's Daily Multivitamin] Nadolol [Corgard] 120 mg PO DAILY 01/16/16 11/19/18 History Tamoxifen [Nolvadex] 20 mg PO DAILY 01/16/16 11/19/18 History Atorvastatin Calcium [Lipitor] 40 mg PO DAILY 09/27/18 11/19/18 History Fish Oil/Dha/Epa [Fish Oil 1,200 1 cap PO DAILY 09/27/18 11/19/18 History mg Fish Oil] Glucosam/Damion-Msm1/C/Johann/Bosw 1 tab PO BID 09/27/18 11/19/18 History [Glucosamine-Chondroitin Tablet] Pantoprazole [Protonix] 40 mg PO DAILY 09/27/18 11/19/18 History Chlorthalidone [Hygroton] 50 mg PO DAILY #30 tab 09/29/18 11/19/18 Rx Losartan [Cozaar] 100 mg PO DAILY #30 tab 09/29/18 11/19/18 Rx amLODIPine [Norvasc] 2.5 mg PO DAILY 11/19/18 11/19/18 History Aspirin 325 mg PO BID #60 tab 11/24/18 Rx HYDROcodone/APAP 5-325MG [[place] 1 - 2 tab PO Q6HR PRN #56 tab 11/24/18 Rx 5-325] Sennosides [Senokot] 1 tab PO BID #60 tablet 11/24/18 Rx Allergies Allergy/AdvReac Type Severity Reaction Status Date / Time CLEO Inhibitors AdvReac Cough Verified 11/19/18 08:40 Physical Exam Vitals: Vital Signs Temp Pulse Pulse Resp BP Pulse Ox 11/24/18 07:35 16 11/24/18 07:00 98.0 F 54 L 16 117/54 95 11/24/18 01:02 98.2 F 64 18 112/58 94 L 11/23/18 18:59 98.3 F 59 L 18 115/68 97 11/23/18 13:44 97.9 F 60 15 129/57 94 L Intake and Output 11/23/18 11/24/18 11/24/18 22:59 06:59 14:59 Intake Total 180 680 240 Balance 180 680 240 Intake: Oral 180 680 240 Other: Voiding Method Toilet Toilet # Voids 1 PHYSICAL EXAMINATION: GENERAL: The patient is alert and oriented x3, not in any acute distress. Well developed, well nourished. HEENT: Pupils are round and equally reacting to light. EOMI. No scleral icterus. No conjunctival pallor. Normocephalic, atraumatic. No pharyngeal erythema. No thyromegaly. CARDIOVASCULAR: S1 and S2 present. No murmurs, rubs, or gallops. PULMONARY: Chest is clear to auscultation, no wheezing or crackles. ABDOMEN: Soft, nontender, nondistended, normoactive bowel sounds. No palpable organomegaly. MUSCULOSKELETAL: No joint swelling or deformity. EXTREMITIES: No cyanosis, clubbing, or pedal edema. Postsurgical packed right knee NEUROLOGICAL: Gross neurological examination did not reveal any focal deficits. SKIN: No rashes. Results CBC & Chem 7: 11/24/18 06:43 Labs: Abnormal Lab Results - Last 24 Hours (Table) 11/24/18 Range/Units 06:43 WBC 19.8 H (3.8-10.6) k/uL RBC 3.70 L (3.80-5.40) m/uL Hgb 11.2 L (11.4-16.0) gm/dL Neutrophils # 15.8 H (1.3-7.7) k/uL Assessment and Plan Plan: Leukocytosis reactive in nature seconded to surgery -Hypertension management as mentioned above -Gases originally reflux disease next and #9 hyperlipidemia -Osteoarthritis History of breast cancer in remission.. Patient is medically stable to be discharged although do not have a basic metabolic profile available at this time this can be repeated as an outpatient when she visits PCP. Patient is otherwise clinically doing well counseling regarding constipation when she uses [place].
== END 2018-11-24 11:58 | disposition home health service (06) ==
LOC: OR 05:32 → 4SSUR 09:02 → OR 11-24 11:58
PROVIDERS: ATTEND Orthopaedic Surgery
DX: M17.12 Unilateral primary osteoarthritis, left knee (principal); C50.912 Malignant neoplasm of unspecified site of left female breast; I25.10 Atherosclerotic heart disease of native coronary artery without angina pectoris; I10 Essential (primary) hypertension; E78.5 Hyperlipidemia, unspecified; Z79.810 Long term (current) use of selective estrogen receptor modulators (SERMs); Z87.891 Personal history of nicotine dependence; Z90.710 Acquired absence of both cervix and uterus; Z79.82 Long term (current) use of aspirin; Z79.899 Other long term (current) drug therapy; Z88.8 Allergy status to other drugs, medicaments and biological substances; I25.2 Old myocardial infarction; Z95.5 Presence of coronary angioplasty implant and graft
CPT/HCPCS: 27447; 97116; 97161; 85025; 88300; 73560; C1713; C1776; C1772; J2250; J0171; J1100; J0690 ×2; J3010; J1885; J2795 ×2; J2370; J2704; J0735

== ENCOUNTER → 2019-03-29 | Outpatient (CLI) | payer MEDICARE ==
[2019-03-29 17:53] LABS: Chol/HDL Ratio 2.45; LDL Cholesterol,Calculated 53.4 mg/dL (0.0-131.0); VLDL Calculation 20.6 mg/dL (5.00-40.00)
== END | disposition home or self-care (01) ==
LOC: LABWHC1 10:59
PROVIDERS: ATTEND Nurse Practitioner Adult Health
DX: E78.2 Mixed hyperlipidemia (principal)
CPT/HCPCS: 36415; 80061; 84450; 84460

== ENCOUNTER → 2019-10-08 | Outpatient (CLI) | payer MEDICARE ==
[2019-10-08 18:27] LABS: African American GFR (CKD) 94.8 (60.0-200.0); Albumin 4.2 g/dL (3.80-4.90); Anion Gap 9.5 mmol/L (4.00-12.00); BUN/Creat Ratio 28.57 Ratio (12.00-20.00); Calcium 9.6 mg/dL (8.7-10.3); Carbon Dioxide 34.5 mmol/L (21.6-31.8); Chol/HDL Ratio 2.71; Globulin 2.1 g/dL (1.6-3.3); LDL Cholesterol,Calculated 61.4 mg/dL (0.0-131.0); Non-African American GFR(CKD) 81.8 (60.0-200.0); Total Bilirubin 0.6 mg/dL (0.2-1.2); Total Protein 6.3 g/dL (6.2-8.2); VLDL Calculation 25.6 mg/dL (5.00-40.00)
== END | disposition home or self-care (01) ==
LOC: LABWHC1 11:00
PROVIDERS: ATTEND Internal Medicine Interventional Cardiology
DX: E78.2 Mixed hyperlipidemia (principal)
CPT/HCPCS: 36415; 80053; 80061

== ENCOUNTER 2019-10-25 07:01 | Day surgery (SDC) | payer MEDICARE ==
[2019-10-25 07:23] VITALS: RESP 16; TEMP 97.6
[2019-10-25] MEDS ORDERED: LIDOCAINE 1% (10MG/ML) FOR IV START INTRADERMA ONE (07:25)
[2019-10-25] MEDS ORDERED: LACTATED RINGERS 1,000 ML IV ONE (07:30)
[2019-10-25] MEDS ORDERED: PROPOFOL 10 MG/ML 20 ML VIAL IV ONE (08:06)
[2019-10-25] MEDS ORDERED: LIDOCAINE 1% INJ 10MG/ML (20 ML MDV) ONE (08:06)
--- NOTE | 2019-10-25 08:35 | P.PCN ---
Date of Procedure: 10/25/19 Description of Procedure: BRIEF HISTORY: Patient is a 78-year-old female presenting for EGD for evaluation of right upper quadrant pain. She has a remote history of peptic ulcer disease as well as coronary artery disease with previous then placing on aspirin daily. She reports a constant right upper quadrant abdominal pain with nausea and decreased appetite long-standing history of PPI therapy. No other NSAIDs or EtOH abuse. Pain is exacerbated with food and associated with weight loss. PROCEDURE PERFORMED: Esophagogastroduodenoscopy with biopsy. PREOPERATIVE DIAGNOSIS: Right upper quadrant abdominal pain. ESTIMATED BLOOD LOSS: Minimal. IV sedation per anesthesia. PROCEDURE: After informed consent was obtained, the patient was brought into the endoscopy unit. IV sedation was administered by Anesthesia under continuous monitoring. Initially the Olympus GIF-190 video endoscope was inserted into the mouth. Esophagus intubated without any difficulty. It was gradually advanced into the stomach and duodenum and carefully examined. The bulb and the second part of the duodenum appeared normal, with biopsies taken to rule out celiac sprue. The scope at this time was withdrawn to the stomach, adequately insufflated with air, and upon careful examination, mucosa of the antrum, body, cardia and the fundus appeared normal, except for some mild punctate erythema in the antrum and body suggestive of mild gastritis biopsy taken. A few diminutive polyps in the body and fundus likely representing fundic gland polyps were also noted and biopsied. The scope was then withdrawn into the esophagus. The GE junction was located at 36 cm from the incisors and biopsied, with a 3 cm hiatal hernia noted. The esophagus appeared normal. There were no erosions or ulcerations seen and the patient tolerated the procedure well. IMPRESSION: 1. Mild gastritis antrum and body, biopsied. 2. Small gastric polyps, biopsied (likely representing fundic gland polyps). 3. Moderate hiatal hernia. 4. Biopsies of the duodenum and GE junction. RECOMMENDATIONS: The findings of this examination were discussed with the patient. Okay to resume diet. Okay to resume medications. Continue PPI therapy. Follow up in GI clinic as previously scheduled and follow results of biopsies with plan for possible HIDA scan in the future.
[2019-10-25 08:46] VITALS: BP 147/66; PULSE 52
== END 2019-10-25 08:58 | disposition home or self-care (01) ==
LOC: ORWHC2ENDO 07:01
PROVIDERS: ATTEND Internal Medicine
DX: K29.50 Unspecified chronic gastritis without bleeding (principal); K44.9 Diaphragmatic hernia without obstruction or gangrene; K31.7 Polyp of stomach and duodenum; I10 Essential (primary) hypertension; E78.5 Hyperlipidemia, unspecified; M19.90 Unspecified osteoarthritis, unspecified site; K21.9 Gastro-esophageal reflux disease without esophagitis; I25.10 Atherosclerotic heart disease of native coronary artery without angina pectoris; Z87.11 Personal history of peptic ulcer disease; Z87.891 Personal history of nicotine dependence; Z88.8 Allergy status to other drugs, medicaments and biological substances; Z79.891 Long term (current) use of opiate analgesic; Z79.899 Other long term (current) drug therapy; Z79.810 Long term (current) use of selective estrogen receptor modulators (SERMs); Z85.3 Personal history of malignant neoplasm of breast; Z95.5 Presence of coronary angioplasty implant and graft; Z79.82 Long term (current) use of aspirin; Z92.3 Personal history of irradiation
CPT/HCPCS: 88305; 43239; J2001; J2704

== ENCOUNTER 2020-03-04 17:46 | Inpatient (IN) | payer MEDICARE ==
[2020-03-04 19:48] LABS: Basophils # (A) 0.1 k/uL (0-0.2); Basophils % (A) 0 %; Eosinophils # (A) 0.2 k/uL (0-0.7); Eosinophils % (A) 1 %; HCT 37.7 % (34.0-46.0); HGB 12.7 gm/dL (11.4-16.0); Lymphocytes # (A) 2.1 k/uL (1.0-4.8); Lymphocytes % (A) 15 %; MCH 30.3 pg (25.0-35.0); MCHC 33.8 g/dL (31.0-37.0); MCV 89.9 fL (80.0-100.0); Mean Platelet Volume 8.5; Monocytes # (A) 0.5 k/uL (0-1.0); Monocytes % (A) 4 %; Neutrophils # (A) 10.9 k/uL (1.3-7.7); Neutrophils % (A) 78 %; Platelet Count 312 k/uL (150-450); RBC 4.19 m/uL (3.80-5.40); RDW 13.8 % (11.5-15.5)
[2020-03-04 19:58] LABS: ALT 34 U/L (4-34); AST 52 U/L (14-36); African American GFR (CKD) >90 (>60 ml/min/1.73 sqM); Albumin 3.8 g/dL (3.5-5.0); Alkaline Phosphatase 118 U/L (38-126); Anion Gap 6 mmol/L; Blood Urea Nitrogen 22 mg/dL (7-17); Calcium 9.1 mg/dL (8.4-10.2); Carbon Dioxide 26 mmol/L (22-30); Chloride 107 mmol/L (98-107); Glucose 112 mg/dL (74-99); Magnesium 1.8 mg/dL (1.6-2.3); Non-African American GFR(CKD) 84 (>60 ml/min/1.73 sqM); Phosphorus 3.6 mg/dL (2.5-4.5); Sodium 139 mmol/L (137-145); Total Bilirubin 0.5 mg/dL (0.2-1.3); Total Protein 6.6 g/dL (6.3-8.2)
--- NOTE | 2020-03-04 20:05 | XR ---
EXAMINATION TYPE: XR chest 2V DATE OF EXAM: 03/04/2020 COMPARISON: NONE HISTORY: Chest pain There is no heart failure nor confluent pneumonic infiltrate. Costophrenic angles are clear. Thoracic aorta is atheromatous. IMPRESSION: No active cardiopulmonary disease. Atheromatous aorta. No change.
[2020-03-04 20:12] LABS: INR 0.9 (<1.2); Partial Thromboplastin Time 22.1 sec (22.0-30.0); Prothrombin Time 9.4 sec (9.0-12.0)
--- NOTE | 2020-03-04 20:13 | ED ---
General Adult HPI <Alex Stauffer - Last Filed: 03/04/20 20:26> - General Source: patient, RN notes reviewed, old records reviewed Mode of arrival: ambulatory Limitations: no limitations <Angelo Tierney - Last Filed: 03/04/20 22:53> - General Chief complaint: Dizziness Stated complaint: SOB/dizziness Time Seen by Provider: 03/04/20 18:10 - History of Present Illness Initial comments: 79-year-old female patient to ED for evaluation. Patient reports that for the last 3 days she has been feeling dizzy and presyncopal. She reports that sometimes she gets somewhat short of breath. Denies any chest pain. Denies any other acute complaints. Systemic: Pt denies fatigue, fever/chills, rash. Pt denies weakness, night sweats, weight loss. Neuro: Pt denies headache, visual disturbances, syncope. HEENT: Pt denies ocular discharge or irritation, otalgia, rhinorrhea, pharyngitis or notable lymphadenopathy. Cardiopulmonary: Pt denies chest pain, heart palpitations, dyspnea on exertion. Abdominal/GI: Pt denies abdominal pain, n/v/d. : Pt denies dysuria, burning w/ urination, frequency/urgency. Denies new onset urinary or bowel incontinence. MSK: Pt denies myalgia, loss of strength or function in extremities. Neuro: Pt denies new onset weakness, paresthesias. (Angelo Tierney) - Related Data Home Medications Medication Instructions Recorded Confirmed Calcium Carbonate/Vitamin D3 1 tab PO BID 01/16/16 03/04/20 [Calcium 600-Vit D3 200 Tablet] Cholecalciferol [Vitamin D3 (25 2,000 unit PO DAILY 01/16/16 03/04/20 Mcg = 1000 Iu)] Multivit with Calcium,Iron,Min 1 tab PO DAILY 01/16/16 03/04/20 [Women's Daily Multivitamin] Nadolol [Corgard] 120 mg PO DAILY 01/16/16 03/04/20 Atorvastatin Calcium [Lipitor] 40 mg PO DAILY 09/27/18 03/04/20 Fish Oil/Dha/Epa [Fish Oil 1,200 1 cap PO DAILY 09/27/18 03/04/20 mg Fish Oil] Glucosam/Damion-Msm1/C/Johann/Bosw 1 tab PO BID 09/27/18 03/04/20 [Glucosamine-Chondroitin Tablet] amLODIPine [Norvasc] 2.5 mg PO DAILY 11/19/18 03/04/20 Chlorthalidone 50 mg PO DAILY 03/04/20 03/04/20 Fluticasone Propionate [Flonase 2 spray EA NOSTRIL DAILY PRN 03/04/20 03/04/20 Allergy Relief] Loratadine [Claritin] 10 mg PO DAILY 03/04/20 03/04/20 Naproxen Sodium [Aleve] 220 mg PO DAILY PRN 03/04/20 03/04/20 Pantoprazole Sodium [Protonix] 40 mg PO DAILY 03/04/20 03/04/20 Pantoprazole Sodium [Protonix] 40 mg PO HS PRN 03/04/20 03/04/20 Allergies Allergy/AdvReac Type Severity Reaction Status Date / Time CLEO Inhibitors AdvReac Cough Verified 03/04/20 21:41 Review of Systems ROS Other: All systems not noted in ROS Statement are negative. <Alex Stauffer - Last Filed: 03/04/20 20:26> ROS Other: All systems not noted in ROS Statement are negative. <Angelo Tierney - Last Filed: 03/04/20 22:53> ROS Statement: Those systems with pertinent positive or pertinent negative responses have been documented in the HPI. Past Medical History Past Medical History: Cancer, GERD/Reflux, Hyperlipidemia, Hypertension, Osteoarthritis (OA) Additional Past Medical History / Comment(s): occasional vertigo @times, L br [place] cancer 2013 with lumpectomy and radiation, admission in September for blood pressure-had med changes & fine now History of Any Multi-Drug Resistant Organisms: None Reported Past Surgical History: Bladder Surgery, Breast Surgery, Heart Catheterization With Stent, Hysterectomy, Orthopedic Surgery Additional Past Surgical History / Comment(s): 01/17/16 PTCA with stent prox/mid RCA and ostium RCA, bladder suspension, left lumpectomy, jeannine. knee arthroscopic surg., R foot surg for fx repair, bunionectomy and hammer toe., infected abscess removed from upper abdomen Past Anesthesia/Blood Transfusion Reactions: Postoperative Nausea & Vomiting (PONV) Additional Past Anesthesia/Blood Transfusion Reaction / Comment(s): only happened once Date of Last Stent Placement:: 09/28/16 Past Psychological History: No Psychological Hx Reported Smoking Status: Never smoker Past Alcohol Use History: Occasional Past Drug Use History: None Reported - Past Family History Daughter(s) Family Medical History: Deep Vein Thrombosis (DVT) Father Family Medical History: Cancer, Myocardial Infarction ([place]) Additional Family Medical History / Comment(s): Father was obese. He had skin cancer. He of a [place] in his early 70's. Mother Family Medical History: CVA/TIA, Hypertension Additional Family Medical History / Comment(s): Mother at the age of 59yrs from a CVA <Angelo Tierney - Last Filed: 03/04/20 22:53> General Exam Limitations: no limitations <Angelo Tierney - Last Filed: 03/04/20 22:53> - General Exam Comments Initial Comments: Constitutional: NAD, AOX3, Pt has pleasant affect. HEENT: NC/AT, trachea midline, neck supple, no lymphadenopathy. Posterior pharynx non erythematous, without exudates. External ears appear normal, without discharge. Mucous membranes moist. Eyes PERRLA, EOM intact. There is no scleral icterus. No pallor noted. Cardiopulmonary: RRR, no murmurs, rubs or gallops, no JVD noted. Lungs CTAB in anterior and posterior venegas. No peripheral edema. Abdominal exam: Abdomen soft and non-distended. Abdomen non-tender to palpation in all 4 quadrants. Bowel sounds active in LLQ. No hepatosplenomegaly. No ecch ymosis Neuro: CN II-XII intact. No nuchal rigidity. No raccon eyes, no mccloud sign, no hemotympanum. No cervical spinal tenderness. MSK: No posterior calf tenderness bilaterally, homans sign negative bilaterally. Posterior tibialis and radial pulse +2 bilaterally. Sensation intact in upper and lower extremities. Full active ROM in upper and lower extremities, 5/5 stregnth. (Angelo Tierney) Course Vital Signs 03/04/20 03/04/20 03/04/20 17:50 19:00 20:00 Temperature 97.1 F L Pulse Rate 43 L 42 L 42 L Respiratory 20 18 18 Rate Blood Pressure 177/70 140/62 140/62 O2 Sat by Pulse 98 99 99 Oximetry 03/04/20 21:46 Temperature 98.1 F Pulse Rate 60 Respiratory 17 Rate Blood Pressure 183/73 O2 Sat by Pulse 98 Oximetry Medical Decision Making - Lab Data Result diagrams: 03/04/20 19:36 03/04/20 19:36 <Alex Stauffer - Last Filed: 03/04/20 20:26> - Lab Data Result diagrams: 03/04/20 19:36 03/04/20 19:36 - EKG Data -: EKG Interpreted by Me (and Dr. Stauffer ) <Angelo Tierney - Last Filed: 03/04/20 22:53> - Medical Decision Making EKGs reviewed. Patient reevaluated and reexamined by myself, Dr. Stauffer. Patient resting comfortably in bed. Heart rate 48. Blood pressure has been stable. I do agree with PA findings. This includes diagnostic interpretation and treatment plan. Case was discussed with Dr. Rapp who would like patient to be admitted to ICU with transcutaneous pacer present if needed. He will recommends holding nadolol. case also discussed with Dr. Prather, who will admit For hospital call. Case also discussed with Dr. Ashley, who will consult (Alex Stauffer) 79-year-old female patient to ED. Patient was that she has been feeling presyncopal had some shortness of breath. Vital signs displayed bradycardia. Chest x-ray displayed no pneumonia or pneumothorax. EKGs displayed sinus bradycardia there is a pause noted. Patient blood pressure is been stable. Just the d-dimer is negative. Patient will be admitted to the ICU with cardiology consult and pacing as needed. Case discussed and patient seen by Dr. Stauffer. (Angelo Tierney) - Lab Data Lab Results 03/04/20 03/04/20 03/04/20 Range/Units 19:36 19:36 19:36 WBC 14.0 H (3.8-10.6) k/uL RBC 4.19 (3.80-5.40) m/uL Hgb 12.7 (11.4-16.0) gm/dL Hct 37.7 (34.0-46.0) % MCV 89.9 (80.0-100.0) fL MCH 30.3 (25.0-35.0) pg MCHC 33.8 (31.0-37.0) g/dL RDW 13.8 (11.5-15.5) % Plt Count 312 (150-450) k/uL MPV 8.5 Neutrophils % 78 % Lymphocytes % 15 % Monocytes % 4 % Eosinophils % 1 % Basophils % 0 % Neutrophils # 10.9 H (1.3-7.7) k/uL Lymphocytes # 2.1 (1.0-4.8) k/uL Monocytes # 0.5 (0-1.0) k/uL Eosinophils # 0.2 (0-0.7) k/uL Basophils # 0.1 (0-0.2) k/uL PT 9.4 (9.0-12.0) sec INR 0.9 (<1.2) APTT 22.1 (22.0-30.0) sec D-Dimer 0.65 H (<0.60) mg/L FEU Sodium 139 (137-145) mmol/L Potassium 4.0 (3.5-5.1) mmol/L Chloride 107 (98-107) mmol/L Carbon Dioxide 26 (22-30) mmol/L Anion Gap 6 mmol/L BUN 22 H (7-17) mg/dL Creatinine 0.65 (0.52-1.04) mg/dL Est GFR (CKD-EPI)AfAm >90 (>60 ml/min/1.73 sqM) Est GFR (CKD-EPI)NonAf 84 (>60 ml/min/1.73 sqM) Glucose 112 H (74-99) mg/dL Calcium 9.1 (8.4-10.2) mg/dL Phosphorus 3.6 (2.5-4.5) mg/dL Magnesium 1.8 (1.6-2.3) mg/dL Total Bilirubin 0.5 (0.2-1.3) mg/dL AST 52 H (14-36) U/L ALT 34 (4-34) U/L Alkaline Phosphatase 118 (38-126) U/L Troponin I (0.000-0.034) ng/mL Total Protein 6.6 (6.3-8.2) g/dL Albumin 3.8 (3.5-5.0) g/dL 03/04/20 Range/Units 19:36 WBC (3.8-10.6) k/uL RBC (3.80-5.40) m/uL Hgb (11.4-16.0) gm/dL Hct (34.0-46.0) % MCV (80.0-100.0) fL MCH (25.0-35.0) pg MCHC (31.0-37.0) g/dL RDW (11.5-15.5) % Plt Count (150-450) k/uL MPV Neutrophils % % Lymphocytes % % Monocytes % % Eosinophils % % Basophils % % Neutrophils # (1.3-7.7) k/uL Lymphocytes # (1.0-4.8) k/uL Monocytes # (0-1.0) k/uL Eosinophils # (0-0.7) k/uL Basophils # (0-0.2) k/uL PT (9.0-12.0) sec INR (<1.2) APTT (22.0-30.0) sec D-Dimer (<0.60) mg/L FEU Sodium (137-145) mmol/L Potassium (3.5-5.1) mmol/L Chloride (98-107) mmol/L Carbon Dioxide (22-30) mmol/L Anion Gap mmol/L BUN (7-17) mg/dL Creatinine (0.52-1.04) mg/dL Est GFR (CKD-EPI)AfAm (>60 ml/min/1.73 sqM) Est GFR (CKD-EPI)NonAf (>60 ml/min/1.73 sqM) Glucose (74-99) mg/dL Calcium (8.4-10.2) mg/dL Phosphorus (2.5-4.5) mg/dL Magnesium (1.6-2.3) mg/dL Total Bilirubin (0.2-1.3) mg/dL AST (14-36) U/L ALT (4-34) U/L Alkaline Phosphatase (38-126) U/L Troponin I <0.012 (0.000-0.034) ng/mL Total Protein (6.3-8.2) g/dL Albumin (3.5-5.0) g/dL - EKG Data EKG Comments: 1) ventricular rate 45, MI interval 176, QRS 100, QT/QTc 446/35. Sinus bradycardia 2) ventricular rate 43, MI interval 176, QRS 104, QT/QTc 474/400. Sinus bradycardia with a pause noted. 3) Ventricular rate 35, MI interval 170, QRS 106, QT/QTc 474/3061. Sinus bradycardia. (Angelo Tierney) Critical Care Time Critical Care Time: Yes (33) <Angelo Tierney - Last Filed: 03/04/20 22:53> Disposition <Alex Stauffer - Last Filed: 03/04/20 20:26> Is patient prescribed a controlled substance at d/c from ED?: No <Angelo Tierney - Last Filed: 03/04/20 22:53> Clinical Impression: Bradycardia Disposition: ADMITTED IP TO THIS HOSP Condition: Serious
[2020-03-04 20:24] LABS: D-Dimer 0.65 mg/L FEU (<0.60)
[2020-03-04] MEDS ORDERED: NALOXONE 0.4 MG/ML 1 ML VIAL IV PRN (20:49)
[2020-03-04] MEDS ORDERED: HYDROcodone/APAP 5-325MG 1 EACH TAB PO PRN (21:36)
[2020-03-04 22:13] LABS: Glucose,Whole Blood 104 mg/dL (75-99)
[2020-03-04] MEDS: SODIUM CHLORIDE 0.9% 1,000 ML IV SCH (22:37)
--- NOTE | 2020-03-04 22:44 | P.HPIM ---
History of Present Illness H&P Date: 03/04/20 Chief Complaint: near syncope 79 year old female with DM , hypertension patient comes in for multiple episodes of near syncope and dizziness even when sitting down doing nothing, which just started today, associated with cold sweats. denies any fever chills, or URI symptoms. denies any similar episodes in the past, however she was diagnosed with vertigo about 3-4 weeks ago and was given meds for that and resolved since then. she also adds that she has been experiencing some chest heaviness over the past 3 days even while sitting doing nothing, she would get sudden short episodes of heavy breathing that resolves on its own. she denies falling, or irregular heart beat, denies any palpitations, denies any changes in her medications recently . denies any traveling or recent hospitalization , denies any sick contacts, she lives alone. she denies active cancer, however she is a breast cancer survivor she denies any GI symptoms, or bleeding in the ED, she was having sinus pauses, and severe sinus bradycardia in the low 30s. cardiology contacted, and recommended transcutaneous pacing as needed, however she has been steadily maintained now in the 45-65 bpm range. no electrolytes abnormalitis Review of Systems Pertinent positives as noted in HPI. All other systems were reviewed and are negative Past Medical History Past Medical History: Cancer, GERD/Reflux, Hyperlipidemia, Hypertension, Osteoarthritis (OA) Additional Past Medical History / Comment(s): occasional vertigo @times, L breast cancer 2013 with lumpectomy and radiation, admission in September for blood pressure-had med changes History of Any Multi-Drug Resistant Organisms: None Reported Past Surgical History: Bladder Surgery, Breast Surgery, Heart Catheterization With Stent, Hysterectomy, Orthopedic Surgery Additional Past Surgical History / Comment(s): 01/17/16 PTCA with stent prox/mid RCA and ostium RCA, bladder suspension, left lumpectomy, jeannine. knee arthroscopic surg., R foot surg for fx repair, bunionectomy and hammer toe., infected abscess removed from upper abdomen Past Anesthesia/Blood Transfusion Reactions: Postoperative Nausea & Vomiting (PONV) Additional Past Anesthesia/Blood Transfusion Reaction / Comment(s): only happened once Date of Last Stent Placement:: 01/17/16 Past Psychological History: No Psychological Hx Reported Smoking Status: Never smoker Past Alcohol Use History: Occasional Past Drug Use History: None Reported - Past Family History Daughter(s) Family Medical History: Deep Vein Thrombosis (DVT) Father Family Medical History: Cancer, Myocardial Infarction ([place]) Additional Family Medical History / Comment(s): Father was obese. He had skin cancer. He of a [place] in his early 70's. Mother Family Medical History: CVA/TIA, Hypertension Additional Family Medical History / Comment(s): Mother at the age of 59yrs from a CVA Medications and Allergies Home Medications Medication Instructions Recorded Confirmed Type Calcium Carbonate/Vitamin D3 1 tab PO BID 01/16/16 03/04/20 History [Calcium 600-Vit D3 200 Tablet] Cholecalciferol [Vitamin D3 (25 2,000 unit PO DAILY 01/16/16 03/04/20 History Mcg = 1000 Iu)] Multivit with Calcium,Iron,Min 1 tab PO DAILY 01/16/16 03/04/20 History [Women's Daily Multivitamin] Nadolol [Corgard] 120 mg PO DAILY 01/16/16 03/04/20 History Atorvastatin Calcium [Lipitor] 40 mg PO DAILY 09/27/18 03/04/20 History Fish Oil/Dha/Epa [Fish Oil 1,200 1 cap PO DAILY 09/27/18 03/04/20 History mg Fish Oil] Glucosam/Damion-Msm1/C/Johann/Bosw 1 tab PO BID 09/27/18 03/04/20 History [Glucosamine-Chondroitin Tablet] amLODIPine [Norvasc] 2.5 mg PO DAILY 11/19/18 03/04/20 History Chlorthalidone 50 mg PO DAILY 03/04/20 03/04/20 History Fluticasone Propionate [Flonase 2 spray EA NOSTRIL DAILY PRN 03/04/20 03/04/20 History Allergy Relief] Loratadine [Claritin] 10 mg PO DAILY 03/04/20 03/04/20 History Naproxen Sodium [Aleve] 220 mg PO DAILY PRN 03/04/20 03/04/20 History Pantoprazole Sodium [Protonix] 40 mg PO DAILY 03/04/20 03/04/20 History Pantoprazole Sodium [Protonix] 40 mg PO HS PRN 03/04/20 03/04/20 History Allergies Allergy/AdvReac Type Severity Reaction Status Date / Time CLEO Inhibitors AdvReac Cough Verified 03/04/20 21:41 Physical Exam Vitals: Vital Signs Temp Pulse Resp BP Pulse Ox 03/04/20 19:00 42 L 18 140/62 99 03/04/20 17:50 97.1 F L 43 L 20 177/70 98 Intake and Output 03/04/20 03/04/20 03/04/20 06:59 14:59 22:59 Other: Weight 83.007 kg Constitutional: No acute distress, conversant, pleasant Eyes: Anicteric sclerae, moist conjunctiva, Pupils equal round reactive to light ENMT: NC/AT Oropharynx clear, no erythema, no exudates Neck: Supple, FROM, no masses, or JVD No carotid bruits No thyromegaly Lungs: Clear to auscultation Clear to percussion Normal respiratory effort, no accessory muscle use Cardiovascular: Heart regular in rate and rhythm, heart rate was in the 60-65 bpm range No murmurs, gallops, or rubs No peripheral edema Abdominal: Soft Nontender, no guarding, rebound or rigidity Abdomen moving with respiration Normoactive bowel sounds No hepatomegaly, No splenomegaly No palpable mass No abdominal wall hernia noted Skin: Normal temperature, tone, texture, turgor No induration No subcutaneous nodules No rash, lesions No ulcers Extremities: No digital cyanosis No clubbing Pedal pulses intact and symmetrical Radial pulses intact and symmetrical No calf tenderness Psychiatric: Alert and oriented to person, place and time Appropriate affect fair judgement Neuro Muscles Strength 5/5 in all 4 extremities Sensation to light touch grossly present throughout Cranial nerves II-XII grossly intact No focal sensory deficits Lymphatics: no palpable cervical or supraclavicular , or inguinal lymph nodes Results CBC & Chem 7: 03/04/20 19:36 03/04/20 19:36 Labs: Abnormal Lab Results - Last 24 Hours (Table) 03/04/20 03/04/20 03/04/20 Range/Units 19:36 19:36 19:36 WBC 14.0 H (3.8-10.6) k/uL Neutrophils # 10.9 H (1.3-7.7) k/uL D-Dimer 0.65 H (<0.60) mg/L FEU BUN 22 H (7-17) mg/dL Glucose 112 H (74-99) mg/dL AST 52 H (14-36) U/L Assessment and Plan Assessment: near syncope sinus bradycardia, symptomatic with occasional sinus pauses >2 sec plan IVF hydration hold BB monitor electrolytes transcutaneous pacing as needed cardiology notified, evaluate for pacemaker admit to ICU DM , insulin sliding scale hypertension, resume home meds, hold BB h/o of breast cancer , s/p radiation and surgery CODE STATUS:full code DVT prophylaxis: heparin sc tid Discussed with: Patient, ER, RN Anticipated length of stay < than [address]: home A total of 75 minutes was spent on the care of this complex patient more than 50% of the time was spent in counseling and care coordination.
[2020-03-04] MEDS ORDERED: hydrALAZINE HCL 25 MG TAB PO STA (23:18)
[2020-03-05] MEDS: TEMAZEPAM 7.5 MG CAP PO PRN ×2 (00:25→23:06)
[2020-03-05] MEDS: HEPARIN SODIUM,PORCINE 5,000 UNIT/ML 1 ML VIAL SQ SCH ×4 (00:25→23:02)
[2020-03-05 04:03] LABS: Basophils # (A) 0.1 k/uL (0-0.2); Basophils % (A) 1 %; Eosinophils # (A) 0.3 k/uL (0-0.7); Eosinophils % (A) 3 %; HCT 36.4 % (34.0-46.0); HGB 11.9 gm/dL (11.4-16.0); Lymphocytes # (A) 2.7 k/uL (1.0-4.8); Lymphocytes % (A) 28 %; MCHC 32.7 g/dL (31.0-37.0); MCV 91.7 fL (80.0-100.0); Mean Platelet Volume 8.1; Monocytes # (A) 0.5 k/uL (0-1.0); Monocytes % (A) 5 %; Neutrophils # (A) 6.1 k/uL (1.3-7.7); Neutrophils % (A) 62 %; Platelet Count 249 k/uL (150-450); RBC 3.97 m/uL (3.80-5.40); RDW 13.2 % (11.5-15.5); WBC 9.8 k/uL (3.8-10.6)
[2020-03-05 04:19] LABS: ALT 30 U/L (4-34); AST 37 U/L (14-36); African American GFR (CKD) >90 (>60 ml/min/1.73 sqM); Albumin 3.3 g/dL (3.5-5.0); Alkaline Phosphatase 104 U/L (38-126); Anion Gap 4 mmol/L; Blood Urea Nitrogen 19 mg/dL (7-17); Calcium 8.7 mg/dL (8.4-10.2); Carbon Dioxide 28 mmol/L (22-30); Chloride 108 mmol/L (98-107); Glucose 102 mg/dL (74-99); Magnesium 1.8 mg/dL (1.6-2.3); Non-African American GFR(CKD) 88 (>60 ml/min/1.73 sqM); Phosphorus 3.4 mg/dL (2.5-4.5); Potassium 3.5 mmol/L (3.5-5.1); Sodium 140 mmol/L (137-145); Total Bilirubin 0.6 mg/dL (0.2-1.3); Total Protein 5.8 g/dL (6.3-8.2)
[2020-03-05] MEDS ORDERED: Potassium Replacement Protocol 1 EACH MISC MISCELLANE PRN (05:10)
[2020-03-05] MEDS ORDERED: Magnesium Replacement Protocol 1 EACH MISC MISCELLANE PRN (05:11)
[2020-03-05] MEDS: MAGNESIUM SULFATE-D5W PMX 1 GM in DEXTROSE/WATER 1 100ML.BAG IVPB SCH ×2 (05:50→06:52)
[2020-03-05] MEDS: POTASSIUM CHLORIDE ER 20 MEQ TAB.ER PO SCH ×2 (05:50→06:52)
[2020-03-05] MEDS: PANTOPRAZOLE 40 MG TABLET PO SCH (06:52)
[2020-03-05] MEDS ORDERED: hydrALAZINE HCL 25 MG TAB PO STA ×2 (06:56→23:28)
--- NOTE | 2020-03-05 07:29 | P.CRDCN ---
History of Present Illness Consult date: 03/05/20 Chief complaint: Dizziness and lightheadedness History of present illness: This is a pleasant 79-year-old female patient with a past medical history significant for coronary artery disease and prior stenting of the right coronary artery in 2016 as well as hypertension and dyslipidemia presented to the emergency department complaining of symptoms of dizziness and lightheadedness. Her symptoms started about a week ago with shortness of breath with exertion which has progressed over the last 48 hours. No discomfort in the chest. For the last 24 hours before she presented to the emergency department she was experiencing symptoms of feeling dizzy and lightheaded but no presyncope or syncope. She felt weak. Because of that she decided to come to the emergency department. No symptoms of fever or chills and no cough or wheezing. In the ER the patient was found to be in marked sinus bradycardia with a resting heart rate in the 30s. She was refusing good with a normal blood pressure. She was receiving Corgard which was held. The patient subsequently was admitted to the intensive care unit and we consulted to see her. The EKG showed marked sinus bradycardia with narrow complex QRS and without any evidence of AV block. The first set of troponin came in to be unremarkable. The rest of the blood work overall came in to be unremarkable. When the patient was seen this morning she stated that she is feeling better. Her heart rate is in the 40s and 50s and as a matter of fact her pressure started going up. I'm going to increase the dose of Norvasc to 5 mg by mouth daily. We will obtain an echocardiogram was Doppler. We'll obtain a TSH and free T4. Also we will rule out acute coronary event by obtaining serial cardiac enzymes. We'll continue following up with the patient. Past Medical History Past Medical History: Cancer, GERD/Reflux, Hyperlipidemia, Hypertension, Osteoar thritis (OA) Additional Past Medical History / Comment(s): occasional vertigo @times, L breast cancer 2013 with lumpectomy and radiation, admission in September for blood pressure-had med changes & fine now History of Any Multi-Drug Resistant Organisms: None Reported Past Surgical History: Bladder Surgery, Breast Surgery, Heart Catheterization With Stent, Hysterectomy, Orthopedic Surgery Additional Past Surgical History / Comment(s): 01/17/16 PTCA with stent prox/mid RCA and ostium RCA, bladder suspension, left lumpectomy, jeannine. knee arthroscopic surg., R foot surg for fx repair, bunionectomy and hammer toe., infected abscess removed from upper abdomen Past Anesthesia/Blood Transfusion Reactions: Postoperative Nausea & Vomiting (PONV) Additional Past Anesthesia/Blood Transfusion Reaction / Comment(s): only happened once Date of Last Stent Placement:: 01/17/16 Past Psychological History: No Psychological Hx Reported Smoking Status: Never smoker Past Alcohol Use History: Occasional Past Drug Use History: None Reported - Past Family History Daughter(s) Family Medical History: Deep Vein Thrombosis (DVT) Father Family Medical History: Cancer, Myocardial Infarction ([place]) Additional Family Medical History / Comment(s): Father was obese. He had skin cancer. He of a [place] in his early 70's. Mother Family Medical History: CVA/TIA, Hypertension Additional Family Medical History / Comment(s): Mother at the age of 59yrs from a CVA Medications and Allergies Home Medications Medication Instructions Recorded Confirmed Type Calcium Carbonate/Vitamin D3 1 tab PO BID 01/16/16 03/04/20 History [Calcium 600-Vit D3 200 Tablet] Cholecalciferol [Vitamin D3 (25 2,000 unit PO DAILY 01/16/16 03/04/20 History Mcg = 1000 Iu)] Multivit with Calcium,Iron,Min 1 tab PO DAILY 01/16/16 03/04/20 History [Women's Daily Multivitamin] Nadolol [Corgard] 120 mg PO DAILY 01/16/16 03/04/20 History Atorvastatin Calcium [Lipitor] 40 mg PO DAILY 09/27/18 03/04/20 History Fish Oil/Dha/Epa [Fish Oil 1,200 1 cap PO DAILY 09/27/18 03/04/20 History mg Fish Oil] Glucosam/Damion-Msm1/C/Johann/Bosw 1 tab PO BID 09/27/18 03/04/20 History [Glucosamine-Chondroitin Tablet] amLODIPine [Norvasc] 2.5 mg PO DAILY 11/19/18 03/04/20 History Chlorthalidone 50 mg PO DAILY 03/04/20 03/04/20 History Fluticasone Propionate [Flonase 2 spray EA NOSTRIL DAILY PRN 03/04/20 03/04/20 History Allergy Relief] Loratadine [Claritin] 10 mg PO DAILY 03/04/20 03/04/20 History Naproxen Sodium [Aleve] 220 mg PO DAILY PRN 03/04/20 03/04/20 History Pantoprazole Sodium [Protonix] 40 mg PO DAILY 03/04/20 03/04/20 History Pantoprazole Sodium [Protonix] 40 mg PO HS PRN 03/04/20 03/04/20 History Allergies Allergy/AdvReac Type Severity Reaction Status Date / Time CLEO Inhibitors AdvReac Cough Verified 03/04/20 21:41 Physical Exam Vitals: Vital Signs Temp Pulse Resp BP Pulse Ox 03/05/20 07:00 47 L 16 184/71 93 L 03/05/20 06:30 23 180/59 98 03/05/20 06:00 51 L 20 171/63 97 03/05/20 05:30 52 L 16 162/66 97 03/05/20 05:00 50 L 20 168/59 97 03/05/20 04:30 46 L 21 172/63 97 03/05/20 04:00 98.7 F 51 L 19 174/67 96 03/05/20 03:30 54 L 20 162/61 89 L 03/05/20 03:00 52 L 19 157/61 90 L 03/05/20 02:30 50 L 16 170/63 90 L 03/05/20 02:00 56 L 17 168/68 90 L 03/05/20 01:30 56 L 16 161/62 90 L 03/05/20 01:00 57 L 16 173/69 90 L 03/05/20 00:30 61 16 166/65 92 L 03/05/20 00:00 56 L 15 189/69 93 L 03/04/20 23:30 59 L 18 188/69 95 03/04/20 23:15 55 L 16 188/69 91 L 03/04/20 23:00 58 L 16 188/66 92 L 03/04/20 22:30 58 L 26 H 193/77 94 L 03/04/20 22:04 98 F 56 L 16 183/73 95 03/04/20 21:46 98.1 F 60 17 183/73 98 03/04/20 20:00 42 L 18 140/62 99 03/04/20 19:00 42 L 18 140/62 99 03/04/20 17:50 97.1 F L 43 L 20 177/70 98 Intake and Output 03/04/20 03/05/20 03/05/20 22:59 06:59 14:59 Intake Total 600 75 Output Total 300 0 350 Balance -300 600 -275 Intake: IV 600 75 Sodium Chloride 0.9% 1, 600 75 000 ml @ 75 mls/hr IV . [id number] [facility] Rx#:[id number] Output: Urine 300 0 350 Other: Voiding Method Toilet Weight 83.007 kg 83.2 kg - Constitutional General appearance: no acute distress - Respiratory Respiratory: bilateral: CTA - Cardiovascular Rhythm: regular Heart sounds: normal: S1, S2 Abnormal Heart Sounds: systolic murmur Results 03/05/20 03:41 03/05/20 03:41 Cardiac Enzymes 03/04/20 03/04/20 03/05/20 Range/Units 19:36 19:36 03:41 AST 52 H 37 H (14-36) U/L Troponin I <0.012 (0.000-0.034) ng/mL Coagulation 03/04/20 Range/Units 19:36 PT 9.4 (9.0-12.0) sec APTT 22.1 (22.0-30.0) sec CBC 03/04/20 03/05/20 Range/Units 19:36 03:41 WBC 14.0 H 9.8 (3.8-10.6) k/uL RBC 4.19 3.97 (3.80-5.40) m/uL Hgb 12.7 11.9 (11.4-16.0) gm/dL Hct 37.7 36.4 (34.0-46.0) % Plt Count 312 249 (150-450) k/uL Comprehensive Metabolic Panel 03/04/20 03/05/20 Range/Units 19:36 03:41 Sodium 139 140 (137-145) mmol/L Potassium 4.0 3.5 (3.5-5.1) mmol/L Chloride 107 108 H (98-107) mmol/L Carbon Dioxide 26 28 (22-30) mmol/L BUN 22 H 19 H (7-17) mg/dL Creatinine 0.65 0.56 (0.52-1.04) mg/dL Glucose 112 H 102 H (74-99) mg/dL Calcium 9.1 8.7 (8.4-10.2) mg/dL AST 52 H 37 H (14-36) U/L ALT 34 30 (4-34) U/L Alkaline Phosphatase 118 104 (38-126) U/L Total Protein 6.6 5.8 L (6.3-8.2) g/dL Albumin 3.8 3.3 L (3.5-5.0) g/dL Current Medications Generic Name Dose Route Start Last Admin Trade Name Freq PRN Reason Stop Dose Admin Hydrocodone Bitart/Acetaminophen 1 each 03/04/20 21:36 Hydrocodone/Apap 5-325mg 1 Each Tab PO Q6HR PRN Pain Amlodipine Besylate 5 mg 03/05/20 09:00 Amlodipine 5 Mg Tab PO DAILY [facility] Aspirin 81 mg 03/05/20 09:00 Aspirin 81 Mg PO DAILY [facility] Atorvastatin Calcium 40 mg 03/05/20 09:00 Atorvastatin 40 Mg Tab PO DAILY [facility] Chlorthalidone 50 mg 03/05/20 09:00 Chlorthalidone 25 Mg Tab PO DAILY [facility] Heparin Sodium (Porcine) 5,000 unit 03/05/20 00:00 03/05/20 00:25 Heparin Sodium,Porcine 5,000 Unit/Ml 1 Ml Vial SQ 5,000 unit Q8HR NIKO Administration Sodium Chloride 1,000 mls @ 75 mls/hr 03/04/20 21:45 03/04/20 22:37 Saline 0.9% IV 75 mls/hr .[id number] [facility] Administration Insulin Aspart 0 unit 03/05/20 07:30 03/05/20 06:50 Insulin Aspart (Novolog) 100 Unit/Ml Vial SQ Not Given AC-TID [facility] Protocol Losartan Potassium 100 mg 03/05/20 09:00 Losartan 50 Mg Tab PO DAILY [facility] Miscellaneous Information 1 each 03/05/20 05:10 Potassium Replacement Protocol 1 Each Misc MISCELLANE DAILY PRN Per Protocol Protocol Miscellaneous Information 1 each 03/05/20 05:11 Magnesium Replacement Protocol 1 Each Misc MISCELLANE DAILY PRN Per Protocol Protocol Naloxone HCl 0.2 mg 03/04/20 20:49 Naloxone 0.4 Mg/Ml 1 Ml Vial IV Q2M PRN Opioid Reversal Pantoprazole Sodium 40 mg 03/05/20 07:30 03/05/20 06:52 Pantoprazole 40 Mg Tablet PO 40 mg [id number] NIKO Administration Senna 8.6 mg 03/05/20 09:00 Sennosides 8.6 Mg Tab PO BID NIKO Tamoxifen Citrate 20 mg 03/05/20 09:00 Tamoxifen 10 Mg Tab PO DAILY [facility] Temazepam 7.5 mg 03/04/20 21:40 03/05/20 00:25 Temazepam 7.5 Mg Cap PO 7.5 mg HS PRN Administration Insomnia Intake and Output 03/04/20 03/05/20 03/05/20 22:59 06:59 14:59 Intake Total 600 75 Output Total 300 0 350 Balance -300 600 -275 Intake: IV 600 75 Sodium Chloride 0.9% 1, 600 75 000 ml @ 75 mls/hr IV . [id number] [facility] Rx#:[id number] Output: Urine 300 0 350 Other: Voiding Method Toilet Weight 83.007 kg 83.2 kg 03/05/20 03:41 03/05/20 03:41 Assessment and Plan Assessment: Assessment #1 symptomatic sinus bradycardia which has improved #2 coronary artery disease and prior stenting of the RCA #3 hypertension #4 dyslipidemia Plan #1 hold any AV kodak carly agents #2 rule out acute coronary event #3 rule out thyroid disorder #4 obtain an echocardiogram was Doppler #5 follow-up with the patient
[2020-03-05] MEDS ORDERED: INSULIN ASPART (NovoLOG) 100 UNIT/ML VIAL SQ SCH (07:30)
[2020-03-05] MEDS ORDERED: POTASSIUM CHLORIDE ER 20 MEQ TAB.ER PO SCH (08:00)
[2020-03-05] MEDS: LOSARTAN 50 MG TAB PO SCH (08:26)
[2020-03-05] MEDS: SENNOSIDES 8.6 MG TAB PO SCH ×2 (08:26→20:58)
[2020-03-05] MEDS: TAMOXIFEN 10 MG TAB PO SCH (08:26)
[2020-03-05] MEDS: ASPIRIN 81 MG PO SCH (08:26)
[2020-03-05] MEDS: CHLORTHALIDONE 25 MG TAB PO SCH (08:26)
[2020-03-05] MEDS: ATORVASTATIN 40 MG TAB PO SCH (08:26)
[2020-03-05 08:40] LABS: T4, Free (Free Thyroxine) 1.19 ng/dL (0.78-2.19)
[2020-03-05] MEDS ORDERED: amLODIPine 5 MG TAB PO SCH ×2 (09:00)
--- NOTE | 2020-03-05 12:08 | P.PN ---
Subjective Progress Note Date: 03/05/20 Patient is feeling well today. Heart rate improved significantly. She did not require any as cutaneous pacing overnight. She denies any complaints or concerns this morning. Objective - Vital Signs Vital signs: Vital Signs Temp 98.0 F 03/05/20 08:00 Pulse 54 L 03/05/20 09:00 Resp 8 L 03/05/20 09:00 BP 147/49 03/05/20 09:00 Pulse Ox 95 03/05/20 09:00 Intake & Output 03/04/20 03/05/20 03/05/20 18:59 06:59 18:59 Intake Total 600 465 Output Total 300 350 Balance 300 115 Weight 83.007 kg 83.2 kg Intake: IV 600 225 Sodium Chloride 0.9% 1, 600 225 000 ml @ 75 mls/hr IV . [id number] [facility] Rx#:[id number] Oral 240 Output: Urine 300 350 Other: Voiding Method Toilet Toilet - Exam General: The patient is awake and alert, in no distress Eye: there is normal conjunctiva bilaterally. Neck: The neck is supple, there is no JVD. Cardiovascular: Normal S1-S2, no S3-S4, no murmurs. Respiratory: Lungs clear to auscultation bilaterally Gastrointestinal: Abdomen is soft, nontender Musculoskeletal: There is no pedal edema. Neurological:. Speech is normal. Skin: Skin is warm and dry - Labs CBC & Chem 7: 03/05/20 03:41 03/05/20 03:41 Labs: Abnormal Lab Results - Last 24 Hours (Table) 03/04/20 03/04/20 03/04/20 Range/Units 19:36 19:36 19:36 WBC 14.0 H (3.8-10.6) k/uL Neutrophils # 10.9 H (1.3-7.7) k/uL D-Dimer 0.65 H (<0.60) mg/L FEU Chloride (98-107) mmol/L BUN 22 H (7-17) mg/dL Glucose 112 H (74-99) mg/dL POC Glucose (mg/dL) (75-99) mg/dL AST 52 H (14-36) U/L Total Protein (6.3-8.2) g/dL Albumin (3.5-5.0) g/dL 03/04/20 03/05/20 Range/Units 22:12 03:41 WBC (3.8-10.6) k/uL Neutrophils # (1.3-7.7) k/uL D-Dimer (<0.60) mg/L FEU Chloride 108 H (98-107) mmol/L BUN 19 H (7-17) mg/dL Glucose 102 H (74-99) mg/dL POC Glucose (mg/dL) 104 H (75-99) mg/dL AST 37 H (14-36) U/L Total Protein 5.8 L (6.3-8.2) g/dL Albumin 3.3 L (3.5-5.0) g/dL Assessment and Plan Assessment: This is a 79-year-old female with past medical history noted below who presented to the emergency room with dizziness and lightheadedness. Patient was evaluated in the ER and admitted to the hospital for further management of her medical problems noted below. 1. Symptomatic bradycardia: Probably attributed to beta blockers. Nadolol was discontinued. Patient was seen and evaluated by cardiology. Serial troponin negative 2 sets. Thyroid function tests within normal limits. Echocardiogram pending. 2. Coronary artery disease with prior stent placement in 2016 3. Essential hypertension blood pressure not well controlled. We will continue current regimen and monitor closely. 4. History of breast cancer status post surgery and radiation therapy 5. DVT prophylaxis with subcu heparin Today, I reviewed her medication list and lab work results. Discontinue IV fluid. Continue telemetry monitoring. Awaiting echocardiogram. Anticipate discharge home tomorrow.
--- NOTE | 2020-03-05 12:24 | P.CNPUL ---
History of Present Illness Consult date: 03/05/20 Requesting physician: Kobe Contreras Reason for consult: other (Critical care management) Chief complaint: Dizziness, presyncope History of present illness: This a very pleasant 79-year-old female patient who follows with Dr. Choe as her primary care provider. History of hypertension, hyperlipidemia, gastroesophageal reflux disease, osteoarthritis, left breast cancer in 2014 with lumpectomy and radiation, coronary artery disease with previous stent placements in 2016 to the proximal and mid RCA along with the ostial RCA. She presented to the emergency yesterday after 2-3 day history of dizziness lightheadedness and near syncopal episodes. EKG revealed significant sinus bradycardia with junctional escape complexes. She had been treated with Corgard for her hypertension for many years. She is seen today in consultation in the intensive care unit. She was monitored overnight. She is currently bradycardic in the low 50s. She is afebrile. Blood pressure stable. Continue O2 saturations in the 90s on room air. She is currently sitting up in a chair at the bedside. Awake and alert in no acute distress. No further dizziness or lightheadedness. No significant sinus pauses. White count 9.8. Hemoglobin 11.9. Sodium 140. Potassium 3.5. Creatinine 0.56. Troponins negative 2. TSH 2.36. T4 1 0.19. Magnesium 1.8. Echocardiogram is pending. Review of Systems REVIEW OF SYSTEMS: CONSTITUTIONAL: Positive for dizziness, lightheadedness, near syncope. Denies any recent significant weight loss or weight gain. EYES: Denies change in vision. EARS, NOSE, MOUTH, THROAT: Denies headaches, denies sore throat. CARDIOVASCULAR: Denies chest pain, palpitations or syncopal episodes. RESPIRATORY: Denies shortness of breath, cough, congestion or hemoptysis. GASTROINTESTINAL: Denies change in appetite, denies abdominal pain GENITOURINARY: Denies hematuria, denies infections. MUSKULOSKELETAL: Denies pain, denies swelling. INTEGUMENTARY: Denies rash, denies eczema. NEUROLOGICAL: Positive for dizziness, lightheadedness, near syncope Denies recen t memory loss, no recent seizure activity. PSYCHIATRIC: Denies anxiety, denies depression. HEMATOLOGIC/LYMPHATIC: Denies anemia, denies enlarged lymph nodes. Past Medical History Past Medical History: Cancer, GERD/Reflux, Hyperlipidemia, Hypertension, Osteoa rthritis (OA) Additional Past Medical History / Comment(s): occasional vertigo @times, L breast cancer 2013 with lumpectomy and radiation, admission in September for blood pressure-had med changes & fine now History of Any Multi-Drug Resistant Organisms: None Reported Past Surgical History: Bladder Surgery, Breast Surgery, Heart Catheterization With Stent, Hysterectomy, Orthopedic Surgery Additional Past Surgical History / Comment(s): 01/17/16 PTCA with stent prox/mid RCA and ostium RCA, bladder suspension, left lumpectomy, jeannine. knee arthroscopic surg., R foot surg for fx repair, bunionectomy and hammer toe., infected abscess removed from upper abdomen Past Anesthesia/Blood Transfusion Reactions: Postoperative Nausea & Vomiting (PONV) Additional Past Anesthesia/Blood Transfusion Reaction / Comment(s): only happened once Date of Last Stent Placement:: 01/17/16 Past Psychological History: No Psychological Hx Reported Smoking Status: Never smoker Past Alcohol Use History: Occasional Past Drug Use History: None Reported - Past Family History Daughter(s) Family Medical History: Deep Vein Thrombosis (DVT) Father Family Medical History: Cancer, Myocardial Infarction ([place]) Additional Family Medical History / Comment(s): Father was obese. He had skin cancer. He of a [place] in his early 70's. Mother Family Medical History: CVA/TIA, Hypertension Additional Family Medical History / Comment(s): Mother at the age of 59yrs from a CVA Medications and Allergies Home Medications Medication Instructions Recorded Confirmed Type Calcium Carbonate/Vitamin D3 1 tab PO BID 01/16/16 03/04/20 History [Calcium 600-Vit D3 200 Tablet] Cholecalciferol [Vitamin D3 (25 2,000 unit PO DAILY 01/16/16 03/04/20 History Mcg = 1000 Iu)] Multivit with Calcium,Iron,Min 1 tab PO DAILY 01/16/16 03/04/20 History [Women's Daily Multivitamin] Nadolol [Corgard] 120 mg PO DAILY 01/16/16 03/04/20 History Atorvastatin Calcium [Lipitor] 40 mg PO DAILY 09/27/18 03/04/20 History Fish Oil/Dha/Epa [Fish Oil 1,200 1 cap PO DAILY 09/27/18 03/04/20 History mg Fish Oil] Glucosam/Damion-Msm1/C/Johann/Bosw 1 tab PO BID 09/27/18 03/04/20 History [Glucosamine-Chondroitin Tablet] amLODIPine [Norvasc] 2.5 mg PO DAILY 11/19/18 03/04/20 History Chlorthalidone 50 mg PO DAILY 03/04/20 03/04/20 History Fluticasone Propionate [Flonase 2 spray EA NOSTRIL DAILY PRN 03/04/20 03/04/20 History Allergy Relief] Loratadine [Claritin] 10 mg PO DAILY 03/04/20 03/04/20 History Naproxen Sodium [Aleve] 220 mg PO DAILY PRN 03/04/20 03/04/20 History Pantoprazole Sodium [Protonix] 40 mg PO DAILY 03/04/20 03/04/20 History Pantoprazole Sodium [Protonix] 40 mg PO HS PRN 03/04/20 03/04/20 History Allergies Allergy/AdvReac Type Severity Reaction Status Date / Time CLEO Inhibitors AdvReac Cough Verified 03/04/20 21:41 Physical Exam Vitals: Vital Signs Temp Pulse Resp BP Pulse Ox 03/05/20 09:00 54 L 8 L 147/49 95 03/05/20 08:00 98.0 F 52 L 10 L 162/69 94 L 03/05/20 07:00 47 L 16 184/71 93 L 03/05/20 06:30 23 180/59 98 03/05/20 06:00 51 L 20 171/63 97 03/05/20 05:30 52 L 16 162/66 97 03/05/20 05:00 50 L 20 168/59 97 03/05/20 04:30 46 L 21 172/63 97 03/05/20 04:00 98.7 F 51 L 19 174/67 96 03/05/20 03:30 54 L 20 162/61 89 L 03/05/20 03:00 52 L 19 157/61 90 L 03/05/20 02:30 50 L 16 170/63 90 L 03/05/20 02:00 56 L 17 168/68 90 L 03/05/20 01:30 56 L 16 161/62 90 L 03/05/20 01:00 57 L 16 173/69 90 L 03/05/20 00:30 61 16 166/65 92 L 03/05/20 00:00 56 L 15 189/69 93 L 03/04/20 23:30 59 L 18 188/69 95 03/04/20 23:15 55 L 16 188/69 91 L 03/04/20 23:00 58 L 16 188/66 92 L 03/04/20 22:30 58 L 26 H 193/77 94 L 03/04/20 22:04 98 F 56 L 16 183/73 95 03/04/20 21:46 98.1 F 60 17 183/73 98 03/04/20 20:00 42 L 18 140/62 99 03/04/20 19:00 42 L 18 140/62 99 03/04/20 17:50 97.1 F L 43 L 20 177/70 98 Intake and Output 03/04/20 03/05/20 03/05/20 22:59 06:59 14:59 Intake Total 600 465 Output Total 300 0 350 Balance -300 600 115 Intake: IV 600 225 Sodium Chloride 0.9% 1, 600 225 000 ml @ 75 mls/hr IV . [id number] [facility] Rx#:[id number] Oral 240 Output: Urine 300 0 350 Other: Voiding Method Toilet Toilet Weight 83.007 kg 83.2 kg GENERAL EXAM: Alert, very pleasant 79-year-old female patient, on room air, up in a chair at the bedside, comfortable in no apparent distress. HEAD: Normocephalic. EYES: Normal reaction of pupils, equal size. NOSE: Clear with pink turbinates. THROAT: No erythema or exudates. NECK: No masses, no JVD. CHEST: No chest wall deformity. LUNGS: Equal air entry with no crackles, wheeze, rhonchi or dullness. CVS: S1 and S2 normal with no audible murmur, regular rhythm, bradycardic. ABDOMEN: No hepatosplenomegaly, normal bowel sounds, no guarding or rigidity. SPINE: No scoliosis or deformity SKIN: No rashes CENTRAL NERVOUS SYSTEM: No focal deficits, tone is normal in all 4 extremities. EXTREMITIES: There is no peripheral edema. No clubbing, no cyanosis. Peripheral pulses are intact. Results - Laboratory Findings CBC and BMP: 03/05/20 03:41 03/05/20 03:41 PT/INR, D-dimer PT 9.4 sec (9.0-12.0) 03/04/20 19:36 INR 0.9 (<1.2) 03/04/20 19:36 D-Dimer 0.65 mg/L FEU (<0.60) H 03/04/20 19:36 Abnormal lab findings: Abnormal Labs 03/04/20 03/04/20 03/04/20 19:36 19:36 19:36 WBC 14.0 H Neutrophils # 10.9 H D-Dimer 0.65 H Chloride BUN 22 H Glucose 112 H POC Glucose (mg/dL) AST 52 H Total Protein Albumin 03/04/20 03/05/20 22:12 03:41 WBC Neutrophils # D-Dimer Chloride 108 H BUN 19 H Glucose 102 H POC Glucose (mg/dL) 104 H AST 37 H Total Protein 5.8 L Albumin 3.3 L - Diagnostic Findings Chest x-ray: image reviewed (No acute cardiopulmonary process) Assessment and Plan Assessment: 1 Dizziness, lightheadedness, near syncope secondary to significant bradycardia 2 Significant bradycardia suspect secondary to beta blockers 3 History of coronary artery disease with previous stent placements 4 History of hyperlipidemia 5 History of hypertension 6 History of breast cancer in 2013, status post lumpectomy/radiation 7 Gastroesophageal reflux disease Plan: The patient was seen and evaluated by Dr. Ashley. She is stable from the critical care standpoint. No external pacing required thus far Cardiology is following. Beta blockers remain on hold. She could be transferred out of the intensive care unit later today if she remains stable. I, the cosigning physician, performed a history & physical examination of the patient. Lungs sounds are clear. Maintaining good O2 saturations in the 90s on room air. I discussed the assessment and plan of care with my nurse practitioner, Sharon Thomas. I attest to the above consultation as dictated by her. Time with Patient: Greater than 30
[2020-03-05] MEDS: SODIUM CHLORIDE 0.9% 1,000 ML IV SCH (12:57)
[2020-03-05] MEDS ORDERED: hydrALAZINE HCL 25 MG TAB PO PRN (21:09)
--- NOTE | 2020-03-05 21:11 | P.EN ---
patient with poorly controlled blood pressure since admission , patient also having bradycardia PRN hydralazin added
[2020-03-06] MEDS: PANTOPRAZOLE 40 MG TABLET PO SCH (06:23)
[2020-03-06 08:15] LABS: Basophils # (A) 0.1 k/uL (0-0.2); Basophils % (A) 1 %; Eosinophils # (A) 0.4 k/uL (0-0.7); Eosinophils % (A) 4 %; HCT 40.8 % (34.0-46.0); HGB 13.4 gm/dL (11.4-16.0); Lymphocytes # (A) 2.5 k/uL (1.0-4.8); Lymphocytes % (A) 28 %; MCH 30.4 pg (25.0-35.0); MCHC 32.8 g/dL (31.0-37.0); MCV 92.8 fL (80.0-100.0); Mean Platelet Volume 7.7; Monocytes # (A) 0.5 k/uL (0-1.0); Monocytes % (A) 6 %; Neutrophils # (A) 5.3 k/uL (1.3-7.7); Neutrophils % (A) 59 %; Platelet Count 248 k/uL (150-450); RDW 13.3 % (11.5-15.5)
[2020-03-06 08:30] LABS: African American GFR (CKD) >90 (>60 ml/min/1.73 sqM); Anion Gap 6 mmol/L; Blood Urea Nitrogen 14 mg/dL (7-17); Calcium 9.2 mg/dL (8.4-10.2); Carbon Dioxide 25 mmol/L (22-30); Chloride 105 mmol/L (98-107); Glucose 90 mg/dL (74-99); Magnesium 1.9 mg/dL (1.6-2.3); Non-African American GFR(CKD) 85 (>60 ml/min/1.73 sqM); Sodium 136 mmol/L (137-145)
[2020-03-06] MEDS: HEPARIN SODIUM,PORCINE 5,000 UNIT/ML 1 ML VIAL SQ SCH ×3 (08:42→22:55)
[2020-03-06] MEDS: ATORVASTATIN 40 MG TAB PO SCH (08:42)
[2020-03-06] MEDS: amLODIPine 10 MG TAB PO SCH (08:42)
[2020-03-06] MEDS: ASPIRIN 81 MG PO SCH (08:42)
[2020-03-06] MEDS: CHLORTHALIDONE 25 MG TAB PO SCH (08:43)
[2020-03-06] MEDS: LOSARTAN 50 MG TAB PO SCH (08:43)
[2020-03-06] MEDS: SENNOSIDES 8.6 MG TAB PO SCH ×2 (08:45→15:21)
[2020-03-06] MEDS: TAMOXIFEN 10 MG TAB PO SCH (08:45)
--- NOTE | 2020-03-06 11:00 | ECHOF ---
Referral Reason:Bradycardia MEASUREMENTS -------- HEIGHT: 152.4 cm WEIGHT: 81.2 kg BP: 199/81 RVIDd: 3.3 cm (< 3.3) IVSd: 1.8 cm (0.6 - 1.1) LVIDd: 4.2 cm (3.9 - 5.3) LVPWd: 1.6 cm (0.6 - 1.1) IVSs: 1.6 cm LVIDs: 2.7 cm LVPWs: 1.9 cm LAESV Index (A-L): 50.22 ml/m Ao Diam: 2.9 cm (2.0 - 3.7) AV Cusp: 1.9 cm (1.5 - 2.6) MV EXCURSION: 14.230 mm (> 18.000) MV EF SLOPE: 58 mm/s (70 - 150) EPSS: 0.4 cm MV E Manuel: 1.22 m/s MV DecT: 132 ms MV A Manuel: 1.05 m/s MV E/A Ratio: 1.16 RAP: 5.00 mmHg RVSP: 34.81 mmHg FINDINGS -------- Resting bradycardia (HR<60bpm). This was a technically adequate study. The left ventricular size is normal. There is moderate concentric left ventricular hypertrophy. O verall left ventricular systolic function is normal with, an EF between 55 - 60 %. The right ventricle is mildly enlarged. LA is severely dilated >40 ml/m2 The right atrial size is normal. Interatrial and interventricular septum intact. Interatrial septal aneurysm. There is mild aortic regurgitation. There is no evidence of aortic stenosis. Mild mitral annular calcification present. Moderate mitral regurgitation is present. Mild tricuspid regurgitation present. There is mild pulmonary hypertension. The right ventricular systolic pressure, as measured by Doppler, is 34.81mmHg. There is no pulmonic regurgitation present. The aortic root size is normal. Normal inferior vena cava with normal inspiratory collapse consistent with estimated right atrial pre ssure of 5 mmHg. There is no pericardial effusion. CONCLUSIONS -------- 1. The left ventricular size is normal. 2. There is moderate concentric left ventricular hypertrophy. 3. Overall left ventricular systolic function is normal with, an EF between 55 - 60 %. 4. The right ventricle is mildly enlarged. 5. LA is severely dilated >40 ml/m2 6. There is mild aortic regurgitation. 7. Mild mitral annular calcification present. 8. Moderate mitral regurgitation is present. 9. Mild tricuspid regurgitation present. 10. There is mild pulmonary hypertension. 11. The right ventricular systolic pressure, as measured by Doppler, is 34.81mmHg. [employer]: Rajwinder Love RDCS
[2020-03-06] MEDS: hydrALAZINE HCL 25 MG TAB PO SCH ×3 (11:18→22:55)
--- NOTE | 2020-03-06 13:10 | P.PN ---
Subjective Progress Note Date: 03/06/20 HISTORY OF PRESENT ILLNESS: Patient examined this morning bedside. She denies chest pain or pressure. She denies shortness of breath. Patient's beta carly remains on hold. Patient's heart rate has improved to the 50s and 60s. Troponins are negative 3. TSH 2.36. Patients blood pressure remains elevated with a systolic in the 180s. Echocardiogram completed reveals EF 55-60%, mild aortic regurgitation, moderate mitral regurgitation, mild tricuspid regurgitation, and mild pulmonary hypertension. PHYSICAL EXAM: VITAL SIGNS: Reviewed. GENERAL: Well-developed in no acute distress. NECK: Supple. No JVD or thyromegaly LUNGS: Respirations even and unlabored. Lungs essentially clear to auscultation bilaterally. HEART: Regular rate and rhythm. S1 and S2 heard. Systolic murmur. EXTREMITIES: Normal range of motion. No clubbing or cyanosis. Peripheral pulses intact. No lower extremity edema ASSESSMENT: Symptomatic sinus bradycardia, improved with discontinuation of beta blockers Hypertension, uncontrolled Coronary artery disease with previous PCI to RCA Hyperlipidemia PLAN: Continue telemetry monitoring Continue to hold beta blockers Continue current cardiac medications Add hydralazine 25 mg twice a day for optimal blood pressure control Nurse practitioner note has been reviewed by physician. Signing provider agrees with the documented findings, assessment, and plan of care. Objective - Vital Signs Vital signs: Vital Signs Temp 98.0 F 03/06/20 08:00 Pulse 53 L 03/06/20 12:00 Resp 18 03/06/20 10:55 BP 170/72 03/06/20 10:58 Pulse Ox 96 03/06/20 10:55 Intake & Output 03/05/20 03/06/20 03/06/20 18:59 06:59 18:59 Intake Total 705 236 Output Total 350 Balance 355 236 Weight 81.2 kg Intake: IV 225 Sodium Chloride 0.9% 1, 225 000 ml @ 75 mls/hr IV . [id number] [facility] Rx#:[id number] Oral 480 236 Output: Urine 350 Other: Voiding Method Toilet # Voids 1 1 1 - Labs CBC & Chem 7: 03/06/20 07:24 03/06/20 07:24 Labs: Abnormal Lab Results - Last 24 Hours (Table) 03/06/20 Range/Units 07:24 Sodium 136 L (137-145) mmol/L
--- NOTE | 2020-03-06 13:54 | P.PN ---
Subjective Progress Note Date: 03/06/20 Patient is feeling well today. She denies any headache or discomfort. Blood pressure still not well controlled. Objective - Vital Signs Vital signs: Vital Signs Temp 98.0 F 03/06/20 08:00 Pulse 53 L 03/06/20 12:00 Resp 18 03/06/20 10:55 BP 170/72 03/06/20 10:58 Pulse Ox 96 03/06/20 10:55 Intake & Output 03/05/20 03/06/20 03/06/20 18:59 06:59 18:59 Intake Total 705 476 Output Total 350 Balance 355 476 Weight 81.2 kg Intake: IV 225 Sodium Chloride 0.9% 1, 225 000 ml @ 75 mls/hr IV . [id number] [facility] Rx#:[id number] Oral 480 476 Output: Urine 350 Other: Voiding Method Toilet # Voids 1 1 2 - Exam General: The patient is awake and alert, in no distress Eye: there is normal conjunctiva bilaterally. Neck: The neck is supple, there is no JVD. Cardiovascular: Normal S1-S2, no S3-S4, no murmurs. Respiratory: Lungs clear to auscultation bilaterally Gastrointestinal: Abdomen is soft, nontender Musculoskeletal: There is no pedal edema. Neurological:. Speech is normal. Skin: Skin is warm and dry - Labs CBC & Chem 7: 03/06/20 07:24 03/06/20 07:24 Labs: Abnormal Lab Results - Last 24 Hours (Table) 03/06/20 Range/Units 07:24 Sodium 136 L (137-145) mmol/L Assessment and Plan Assessment: This is a 79-year-old female with past medical history noted below who presented to the emergency room with dizziness and lightheadedness. Patient was evaluated in the ER and admitted to the hospital for further management of her medical problems noted below. 1. Symptomatic bradycardia: Probably attributed to beta blockers. Nadolol was discontinued. Heart rate improved. Patient was seen and evaluated by cardiology. Serial troponin negative 2 sets. Thyroid function tests within normal limits. Echocardiogram showed preserved ejection fraction of 55-60% and no significant valvular abnormalities 2. Coronary artery disease with prior stent placement in 2016 3. Hypertensive urgency with underlying Essential hypertension blood pressure not well controlled. Regimen being adjusted by cardiology. 4. History of breast cancer status post surgery and radiation therapy 5. DVT prophylaxis with subcu heparin Today, I reviewed her medication list and lab work results. Continue telemetry monitoring. Anticipate discharge home tomorrow.
--- NOTE | 2020-03-06 18:31 | P.PN ---
Subjective Progress Note Date: 03/06/20 On today's evaluation of 03/06/2020, the patient is gradually recovering from her bradycardia. Her BP is elevated. Heart rate is currently in the mid 50s. No syncope. No altered mentation. No dizziness. No fever. No chills. No cough or sputum production. No other complaints otherwise and the patient is currently on room air oxygen. The beta carly as the patient was taking nadolol. She is taking currently doesn't 25 mg 3 times a day for blood pressure control in combination with Cozaar and Norvasc was also added a dose of 10 mg by mouth daily. Objective - Vital Signs Vital signs: Vital Signs Temp 97.9 F 03/06/20 15:13 Pulse 67 03/06/20 16:00 Resp 16 03/06/20 15:13 BP 172/64 03/06/20 15:16 Pulse Ox 98 03/06/20 15:13 Intake & Output 03/05/20 03/06/20 03/06/20 18:59 06:59 18:59 Intake Total 705 716 Output Total 350 Balance 355 716 Weight 81.2 kg Intake: IV 225 Sodium Chloride 0.9% 1, 225 000 ml @ 75 mls/hr IV . [id number] [facility] Rx#:[id number] Oral 480 716 Output: Urine 350 Other: Voiding Method Toilet # Voids 1 1 2 - Exam The patient appeared well nourished and normally developed. Vital signs as documented. Head exam is unremarkable. No scleral icterus or corneal arcus n oted. Neck is without jugular venous distension, thyromegaly, or carotid bruits. Carotid upstrokes are brisk bilaterally. Lungs are clear to auscultation and percussion. Cardiac exam reveals the PMI to be normally sized and situated. Rhythm is regular. First and second heart sounds normal. No murmurs, rubs or gallops. Abdominal exam reveals normal bowel sounds, no masses, no organomegaly and no aortic enlargement. Extremities are nonedematous and both femoral and pedal pulses are normal. - Labs CBC & Chem 7: 03/06/20 07:24 03/06/20 07:24 Labs: Abnormal Lab Results - Last 24 Hours (Table) 03/06/20 Range/Units 07:24 Sodium 136 L (137-145) mmol/L Assessment and Plan Plan: 1 sinus bradycardia, recovered and the patient is currently off the beta blockers 2 Significant bradycardia suspect secondary to beta blockers 3 History of coronary artery disease with previous stent placements 4 History of hyperlipidemia 5 History of hypertension, with elevated blood pressure 6 History of breast cancer in 2013, status post lumpectomy/radiation 7 Gastroesophageal reflux disease Plan Pulmonary services. Adjust blood pressure medication for tighter blood pressure control. Heart rate is improved and avoid beta blockers.
[2020-03-06] MEDS: TEMAZEPAM 7.5 MG CAP PO PRN (22:55)
[2020-03-07] MEDS: PANTOPRAZOLE 40 MG TABLET PO SCH (06:44)
[2020-03-07 08:38] VITALS: BP 118/58; PULSE 79; RESP 16; TEMP 97.7
[2020-03-07] MEDS: LOSARTAN 50 MG TAB PO SCH (08:38)
[2020-03-07] MEDS: SENNOSIDES 8.6 MG TAB PO SCH (08:39)
[2020-03-07] MEDS: CHLORTHALIDONE 25 MG TAB PO SCH (08:39)
[2020-03-07] MEDS: ASPIRIN 81 MG PO SCH (08:39)
[2020-03-07] MEDS: HEPARIN SODIUM,PORCINE 5,000 UNIT/ML 1 ML VIAL SQ SCH (08:39)
[2020-03-07] MEDS: amLODIPine 10 MG TAB PO SCH (08:39)
[2020-03-07] MEDS: ATORVASTATIN 40 MG TAB PO SCH (08:39)
[2020-03-07] MEDS: hydrALAZINE HCL 25 MG TAB PO SCH (08:39)
--- NOTE | 2020-03-07 10:14 | P.DS ---
Providers Date of admission: 03/04/20 20:18 Expected date of discharge: 03/07/20 Attending physician: Phylicia Villa DO Consults: 03/04/20 20:27 Consult Physician Urgent Consulting Provider: Troy Ashley Consult Reason/Comments: critical care Do you want consulting provider notified?: Yes 03/04/20 20:28 Consult Physician Urgent Consulting Provider: Darrius Rapp Consult Reason/Comments: bradycardia Do you want consulting provider notified?: Already Contacted Primary care physician: Alanis Choe MD Hospital Course: This is a 79-year-old female with past medical history noted below who presented to the emergency room with dizziness and lightheadedness. Patient was evaluated in the ER and admitted to the hospital for further management of her medical problems noted below. 1. Symptomatic bradycardia: Probably attributed to beta blockers. Nadolol was discontinued. Heart rate improved. Patient was seen and evaluated by cardiology. Serial troponin negative 2 sets. Thyroid function tests within normal limits. Echocardiogram showed preserved ejection fraction of 55-60% and no significant valvular abnormalities 2. Coronary artery disease with prior stent placement in 2016 3. Hypertensive urgency with underlying Essential hypertension blood pressure better controlled. Regimen adjusted during this admission. Continue to monitor blood pressure closely at home. 4. History of breast cancer status post surgery and radiation therapy Patient was advised to follow-up with her PCP and cardiology as directed Patient will be discharged home in a stable condition. For further details about this hospitalization please refer to the electronic chart. Time spent on discharge > 30 minutes including counseling and coordination of care Patient Condition at Discharge: Stable Plan - Discharge Summary Discharge Rx Participant: No New Discharge Prescriptions: New hydrALAZINE HCL [Apresoline] 25 mg PO TID #90 tab Losartan Potassium [Cozaar] 100 mg PO DAILY #30 tab amLODIPine [Norvasc] 10 mg PO DAILY #30 tab Continue Cholecalciferol [Vitamin D3 (25 Mcg = 1000 Iu)] 2,000 unit PO DAILY Multivit with Calcium,Iron,Min [Women's Daily Multivitamin] 1 tab PO DAILY Calcium Carbonate/Vitamin D3 [Calcium 600-Vit D3 200 Tablet] 1 tab PO BID Atorvastatin Calcium [Lipitor] 40 mg PO DAILY Glucosam/Damion-Msm1/C/Johann/Bosw [Glucosamine-Chondroitin Tablet] 1 tab PO BID Fish Oil/Dha/Epa [Fish Oil 1,200 mg Fish Oil] 1 cap PO DAILY Naproxen Sodium [Aleve] 220 mg PO DAILY PRN PRN Reason: Arthritis Pain Fluticasone Propionate [Flonase Allergy Relief] 2 spray EA NOSTRIL DAILY PRN PRN Reason: Allergy Symptoms Chlorthalidone 50 mg PO DAILY Pantoprazole Sodium [Protonix] 40 mg PO DAILY Discontinued Nadolol [Corgard] 120 mg PO DAILY amLODIPine [Norvasc] 2.5 mg PO DAILY Loratadine [Claritin] 10 mg PO DAILY Pantoprazole Sodium [Protonix] 40 mg PO HS PRN PRN Reason: Gi Upset Discharge Medication List Calcium Carbonate/Vitamin D3 [Calcium 600-Vit D3 200 Tablet] 1 tab PO BID 01/16/16 [History] Cholecalciferol [Vitamin D3 (25 Mcg = 1000 Iu)] 2,000 unit PO DAILY 01/16/16 [History] Multivit with Calcium,Iron,Min [Women's Daily Multivitamin] 1 tab PO DAILY 01/16/16 [History] Atorvastatin Calcium [Lipitor] 40 mg PO DAILY 09/27/18 [History] Fish Oil/Dha/Epa [Fish Oil 1,200 mg Fish Oil] 1 cap PO DAILY 09/27/18 [History] Glucosam/Damion-Msm1/C/Johann/Bosw [Glucosamine-Chondroitin Tablet] 1 tab PO BID 09/27/18 [History] Chlorthalidone 50 mg PO DAILY 03/04/20 [History] Fluticasone Propionate [Flonase Allergy Relief] 2 spray EA NOSTRIL DAILY PRN 03/04/20 [History] Naproxen Sodium [Aleve] 220 mg PO DAILY PRN 03/04/20 [History] Pantoprazole Sodium [Protonix] 40 mg PO DAILY 03/04/20 [History] Losartan Potassium [Cozaar] 100 mg PO DAILY #30 tab 03/07/20 [Rx] amLODIPine [Norvasc] 10 mg PO DAILY #30 tab 03/07/20 [Rx] hydrALAZINE HCL [Apresoline] 25 mg PO TID #90 tab 03/07/20 [Rx] Follow up Appointment(s)/Referral(s): Alanis Choe MD [Primary Care Provider] - 1-2 days Kamron Euceda MD [STAFF PHYSICIAN] - 1 Week Discharge Disposition: HOME SELF-CARE
[2020-03-07 10:26] LABS: Potassium 4.5 mmol/L (3.5-5.1)
[2020-03-07 11:01] LABS: Calcium 9.7 mg/dL (8.4-10.2)
--- NOTE | 2020-03-07 12:50 | P.PN ---
Subjective Progress Note Date: 03/07/20 HISTORY OF PRESENT ILLNESS: Patient examined this morning bedside. She denies chest pain or pressure. She denies shortness of breath. Patient's beta carly remains on hold. Patient's heart rate has improved to the 60-80s. Patient's blood pressure has improved this morning with a recent reading of 118/58. PHYSICAL EXAM: VITAL SIGNS: Reviewed. GENERAL: Well-developed in no acute distress. NECK: Supple. No JVD or thyromegaly LUNGS: Respirations even and unlabored. Lungs essentially clear to auscultation bilaterally. HEART: Regular rate and rhythm. S1 and S2 heard. Systolic murmur. EXTREMITIES: Normal range of motion. No clubbing or cyanosis. Peripheral pulses intact. No lower extremity edema ASSESSMENT: Symptomatic sinus bradycardia, improved with discontinuation of beta blockers Hypertension, uncontrolled Coronary artery disease with previous PCI to RCA Hyperlipidemia PLAN: Continue telemetry monitoring Continue to hold beta blockers Continue current cardiac medications Patient is stable for discharge from a cardiac perspective. She is to follow up outpatient with Dr. Euceda Nurse practitioner note has been reviewed by physician. Signing provider agrees with the documented findings, assessment, and plan of care. Objective - Vital Signs Vital signs: Vital Signs Temp 97.7 F 03/07/20 08:36 Pulse 79 03/07/20 08:36 Resp 16 03/07/20 08:36 BP 118/58 03/07/20 08:36 Pulse Ox 97 03/07/20 08:36 Intake & Output 03/06/20 03/07/20 03/07/20 18:59 06:59 18:59 Intake Total 716 240 Output Total 300 Balance 716 -300 240 Weight 80.5 kg Intake: Oral 716 240 Output: Urine 300 Other: Voiding Method Toilet # Voids 2 1 - Labs CBC & Chem 7: 03/06/20 07:24 03/07/20 07:52 Labs: Abnormal Lab Results - Last 24 Hours (Table) 03/07/20 Range/Units 07:52 BUN 19 H (7-17) mg/dL Glucose 106 H (74-99) mg/dL
== END 2020-03-07 12:13 | disposition home or self-care (01) | DRG 310 ==
LOC: EC 17:46 → 2SICU 20:18 → 3SCARD 03-05 16:04
PROVIDERS: ADMIT Internal Medicine; ATTEND Internal Medicine
DX: R00.1 Bradycardia, unspecified (principal); E11.9 Type 2 diabetes mellitus without complications; E78.5 Hyperlipidemia, unspecified; I08.3 Combined rheumatic disorders of mitral, aortic and tricuspid valves; I10 Essential (primary) hypertension; I16.0 Hypertensive urgency; I25.10 Atherosclerotic heart disease of native coronary artery without angina pectoris; I27.20 Pulmonary hypertension, unspecified; K21.9 Gastro-esophageal reflux disease without esophagitis; Z79.899 Other long term (current) drug therapy; M19.90 Unspecified osteoarthritis, unspecified site; Z80.8 Family history of malignant neoplasm of other organs or systems; Z82.3 Family history of stroke; Z82.49 Family history of ischemic heart disease and other diseases of the circulatory system; Z85.3 Personal history of malignant neoplasm of breast; Z90.710 Acquired absence of both cervix and uterus; Z92.3 Personal history of irradiation; Z95.5 Presence of coronary angioplasty implant and graft; Z83.2 Family history of diseases of the blood and blood-forming organs and certain disorders involving the immune mechanism
CPT/HCPCS: 36415; 71046; 80048; 80053; 83735; 84100; 84439; 84443; 84481; 84484; 85025; 85379; 85610; 85730; 93005; 93306; 99291

== ENCOUNTER → 2020-04-25 | Outpatient (CLI) | payer MEDICARE ==
[2020-04-25 15:30] LABS: Chol/HDL Ratio 2.86; LDL Cholesterol,Calculated 89.2 mg/dL (0.0-131.0); VLDL Calculation 20.8 mg/dL (5.00-40.00)
== END | disposition home or self-care (01) ==
LOC: LABWHC1 10:22
PROVIDERS: ATTEND Internal Medicine Interventional Cardiology
DX: E78.2 Mixed hyperlipidemia (principal)
CPT/HCPCS: 36415; 80061; 84450; 84460

== ENCOUNTER → 2020-10-31 | Outpatient (CLI) | payer MEDICARE ==
[2020-10-31 20:44] LABS: African American GFR (CKD) 79.6 (60.0-200.0); Albumin 4.2 g/dL (3.80-4.90); Anion Gap 9.8 mmol/L (4.00-12.00); BUN/Creat Ratio 28.75 Ratio (12.00-20.00); Calcium 9.1 mg/dL (8.7-10.3); Carbon Dioxide 31.2 mmol/L (21.6-31.8); Chol/HDL Ratio 2.83; Globulin 2.1 g/dL (1.6-3.3); LDL Cholesterol,Calculated 63.2 mg/dL (0.0-131.0); Non-African American GFR(CKD) 68.7 (60.0-200.0); Potassium 3.4 mmol/L (3.5-5.5); Total Bilirubin 0.7 mg/dL (0.2-1.2); Total Protein 6.3 g/dL (6.2-8.2); VLDL Calculation 22.8 mg/dL (5.00-40.00)
== END | disposition home or self-care (01) ==
LOC: LABWHC1 10:41
PROVIDERS: ATTEND Nurse Practitioner Adult Health
DX: E78.2 Mixed hyperlipidemia (principal); I10 Essential (primary) hypertension
CPT/HCPCS: 36415; 80053; 80061

== ENCOUNTER → 2021-05-16 | Outpatient (CLI) | payer MEDICARE ==
[2021-05-16 14:31] LABS: ALT 36 U/L (8-44); AST 26 U/L (13-35); African American GFR (CKD) 69.7 (60.0-200.0); Albumin 4.2 g/dL (3.8-4.9); Albumin/Globulin Ratio 1.66 (1.60-3.17); Alkaline Phosphatase 123 U/L (41-126); BUN/Creat Ratio 24.75 Ratio (12.00-20.00); Blood Urea Nitrogen 22.1 mg/dL (9.0-27.0); Calcium 9.7 mg/dL (8.7-10.3); Carbon Dioxide 27.9 mmol/L (20.0-27.5); Chloride 103 mmol/L (96-109); Chol/HDL Ratio 2.82 Ratio; Globulin 2.6 g/dL (1.6-3.3); Glucose 101 mg/dL (70-110); LDL Cholesterol,Calculated 77.4 mg/dL (0.0-131.0); Non-African American GFR(CKD) 60.1 (60.0-200.0); Potassium 3.7 mmol/L (3.5-5.5); Sodium 142 mmol/L (135-145); Total Protein 6.8 g/dL (6.2-8.2)
== END | disposition home or self-care (01) ==
LOC: LABWHC1 08:55
PROVIDERS: ATTEND Nurse Practitioner Adult Health
DX: I10 Essential (primary) hypertension (principal); E78.2 Mixed hyperlipidemia
CPT/HCPCS: 36415; 80053; 80061

== ENCOUNTER 2021-08-28 09:09 | Day surgery (SDC) | payer MEDICARE ==
[2021-08-27 08:43] VITALS: BMI 33.2
[~2021-08-28 09:09] MED LIST changes: -ACETAMINOPHEN TAB 500 MG TAB PO ONE; +LACTATED RINGERS 1,000 ML IV SCH; -MELOXICAM 7.5 MG TAB PO ONE; -TRANEXAMIC ACID 1,000 MG in SODIUM CHLORIDE 0.9% 100 ML IVPB ONE
[2021-08-28 09:57] VITALS: TEMP 97.8
[2021-08-28] MEDS ORDERED: LIDOCAINE 2% INJ 20 MG/ML (2 ML VIAL) ONE (10:15)
[2021-08-28] MEDS ORDERED: PROPOFOL 10 MG/ML 20 ML VIAL IV ONE (10:15)
--- NOTE | 2021-08-28 10:26 | P.GSHP ---
History of Present Illness H&P Date: 08/28/21 Chief Complaint: GERD, dysphagia 80-year-old female here today for upper endoscopy. Patient with history of chronic reflux. Recently has had increasing dysphagia. Last upper endoscopy 2 years ago. She takes an antacid daily. Past Medical History Past Medical History: Cancer, GERD/Reflux, Hyperlipidemia, Hypertension, Osteoarthritis (OA) Additional Past Medical History / Comment(s): occasional vertigo @times, L breast cancer 2013 with lumpectomy and radiation, recent left breast bx-benign History of Any Multi-Drug Resistant Organisms: None Reported Past Surgical History: Bladder Surgery, Breast Surgery, Heart Catheterization With Stent, Hysterectomy, Joint Replacement, Orthopedic Surgery Additional Past Surgical History / Comment(s): PTCA with stent prox/mid RCA and ostium RCA, bladder suspension, left lumpectomy and bx again recently, jeannine. knee arthroscopic surg., R foot surg for fx repair, bunionectomy and hammer toe surg., infected abscess removed from upper abdomen, left total knee replacement Past Anesthesia/Blood Transfusion Reactions: Postoperative Nausea & Vomiting (PONV) Additional Past Anesthesia/Blood Transfusion Reaction / Comment(s): only happened once Date of Last Stent Placement:: 01/17/16 Past Psychological History: No Psychological Hx Reported Additional Psychological History / Comment(s): Pt resides alone. She is independent. Smoking Status: Never smoker Past Alcohol Use History: Occasional Additional Past Alcohol Use History / Comment(s): quit smoking in her 40's Past Drug Use History: None Reported - Past Family History Daughter(s) Family Medical History: Deep Vein Thrombosis (DVT) Father Family Medical History: Cancer, Myocardial Infarction (MD) Additional Family Medical History / Comment(s): Father was obese. He had skin cancer. He of a MD in his early 70's. Mother Family Medical History: CVA/TIA, Hypertension Additional Family Medical History / Comment(s): Mother at the age of 59yrs from a CVA Medications and Allergies Home Medications Medication Instructions Recorded Confirmed Type Calcium Carbonate/Vitamin D3 1 tab PO BID 01/16/16 08/27/21 History [Calcium 600-Vit D3 5 Mcg (200 Iu)] Cholecalciferol [Vitamin D3 (25 2,000 unit PO DAILY 01/16/16 08/27/21 History Mcg = 1000 Iu)] Multivit with Calcium,Iron,Min 1 tab PO DAILY 01/16/16 08/27/21 History [Women's Daily Multivitamin] Atorvastatin Calcium [Lipitor] 40 mg PO DAILY 09/27/18 08/27/21 History Fish Oil/Dha/Epa [Fish Oil 1,200 1 cap PO DAILY 09/27/18 08/27/21 History mg Fish Oil] Glucosam/Damion-Msm1/C/Johann/Bosw 1 tab PO BID 09/27/18 08/27/21 History [Glucosamine-Chondroitin Tablet] Pantoprazole Sodium [Protonix] 40 mg PO DAILY 03/04/20 08/27/21 History Losartan Potassium [Cozaar] 100 mg PO DAILY #30 tab 03/07/20 08/27/21 Rx amLODIPine [Norvasc] 10 mg PO DAILY #30 tab 03/07/20 08/27/21 Rx hydrALAZINE HCL [Apresoline] 25 mg PO TID #90 tab 03/07/20 08/27/21 Rx Aspirin [Adult Low Dose Aspirin EC] 81 mg PO DAILY 08/27/21 08/27/21 History Potassium Chloride [Klor-Con 10 ER] 10 meq PO DAILY 08/27/21 08/27/21 History Allergies Allergy/AdvReac Type Severity Reaction Status Date / Time CLEO Inhibitors AdvReac Cough Verified 08/27/21 08:28 Surgical - Exam Vital Signs Temp Pulse Resp BP Pulse Ox 97.8 F 76 20 143/63 98 08/28/21 09:45 08/28/21 09:45 08/28/21 09:45 08/28/21 09:45 08/28/21 09:45 Physical exam: General: Well-developed, well-nourished HEENT: Normocephalic, sclerae nonicteric Abdomen: Nontender, nondistended Extremities: No edema Neuro: Alert and oriented Assessment and Plan (1) GERD (gastroesophageal reflux disease) Narrative/Plan: Will proceed with upper endoscopy Current Visit: Yes Status: Acute Code(s): K21.9 - GASTRO-ESOPHAGEAL REFLUX DISEASE WITHOUT ESOPHAGITIS SNOMED Code(s): 997742976
--- NOTE | 2021-08-28 10:34 | P.PCN ---
Date of Procedure: 08/28/21 Procedure(s) Performed: Preoperative Dx: GERD, dysphagia Postoperative Dx: Moderate hiatal hernia, gastritis, gastric polyp Procedure: EGD with Bx Anesthesia: Sedation Endoscopist: Dr. Davis Specimens: Antrum, gastric polyp Endoscopic Procedure: The patient was on the endoscopy table in the left decubitus position. The Olympus gastroscope was inserted into the oropharynx and passed under direct visualization to the region of the third portion of the duodenum. From that point the scope was slowly withdrawn inspecting all surfaces carefully. There were no neoplastic inflammatory or polypoid lesions throughout the duodenum. The pylorus was widely patent. The stomach was carefully inspected. There was gastritis present with a few small erosions. A biopsy of the antrum took place to rule out H. pylori. Retroflexion revealed a moderate to large hiatal hernia. The diaphragmatic hiatus was present at 39 cm in the GE junction was present at 32 cm. The patient had a few small polyps in the proximal stomach one of which was removed. There was mild inflammation seen in the stomach above the diaphragm. The GE junction itself appeared normal and the esophagus likewise appeared normal. The patient was then taken to the recovery room in stable condition per anesthesia guidelines. Recommendations: Await biopsy results. Continue antiacid therapy. Recommend multiple small meals daily.
[2021-08-28 10:42] VITALS: RESP 16
[2021-08-28 10:58] VITALS: BP 127/63; PULSE 65
== END 2021-08-28 11:11 | disposition home or self-care (01) ==
LOC: ORWHC2ENDO 09:09
PROVIDERS: ATTEND Surgery
DX: K29.60 Other gastritis without bleeding (principal); K21.00 Gastro-esophageal reflux disease with esophagitis, without bleeding; K44.9 Diaphragmatic hernia without obstruction or gangrene; E78.5 Hyperlipidemia, unspecified; I10 Essential (primary) hypertension; K31.7 Polyp of stomach and duodenum; M19.90 Unspecified osteoarthritis, unspecified site; Z79.82 Long term (current) use of aspirin; Z82.49 Family history of ischemic heart disease and other diseases of the circulatory system; Z85.3 Personal history of malignant neoplasm of breast; Z95.5 Presence of coronary angioplasty implant and graft; Z96.652 Presence of left artificial knee joint
CPT/HCPCS: 43239; 88305; J2704; J2001

== ENCOUNTER → 2021-11-19 | Outpatient (CLI) | payer MEDICARE ==
[2021-11-19 15:18] LABS: ALT 34 U/L (8-44); AST 28 U/L (13-35); Chol/HDL Ratio 2.38 Ratio
== END | disposition home or self-care (01) ==
LOC: LABWHC1 09:18
PROVIDERS: ATTEND Internal Medicine Interventional Cardiology
DX: E78.2 Mixed hyperlipidemia (principal)
CPT/HCPCS: 36415; 80061; 84450; 84460

== ENCOUNTER → 2022-07-01 | Outpatient (CLI) | payer MEDICARE ==
[2022-07-01 14:25] LABS: Anion Gap 16.1 mmol/L (10.00-18.00); Carbon Dioxide 25.9 mmol/L (20.0-27.5); Non-African American GFR(CKD) 68.2 (60.0-200.0); Potassium 3.5 mmol/L (3.5-5.5)
== END | disposition home or self-care (01) ==
LOC: LABWHC1 09:37
PROVIDERS: ATTEND Nurse Practitioner Adult Health
DX: I10 Essential (primary) hypertension (principal)
CPT/HCPCS: 36415; 80048

== ENCOUNTER 2023-02-25 07:31 | Day surgery (SDC) | payer MEDICARE ==
[~2023-02-25 07:31] MED LIST changes: +ALPRAZolam 0.25 MG TAB PO PRN; +ALPRAZolam 0.5 MG TAB PO PRN; +ASPIRIN 325 MG TAB PO STA; +ATORVASTATIN 80 MG TAB PO STA; +HEPARIN SODIUM,PORCINE (1 ML) 2,500 UNIT in SODIUM CHLORIDE 0.9% 250 ML IRRIGATION PRN; +HEPARIN SODIUM,PORCINE 10,000 UNIT in SODIUM CHLORIDE 0.9% 1,000 ML IRRIGATION PRN; -LACTATED RINGERS 1,000 ML IV SCH; +NITROGLYCERIN SL TABS 0.4 MG TAB SUBLINGUAL PRN; +SODIUM CHLORIDE 0.9% 1,000 ML in EMPTY BAG 1 BAG IV SCH
[2023-02-25 08:11] VITALS: RESP 18; TEMP 97.6
[2023-02-25 08:30] LABS: African American GFR (CKD) 81 (>60 ml/min/1.73 sqM); Anion Gap 11 mmol/L; Blood Urea Nitrogen 21 mg/dL (7-17); Calcium 10.5 mg/dL (8.4-10.2); Carbon Dioxide 30 mmol/L (22-30); Chloride 100 mmol/L (98-107); Glucose 104 mg/dL (74-99); Non-African American GFR(CKD) 70 (>60 ml/min/1.73 sqM); Potassium 3.7 mmol/L (3.5-5.1); Sodium 141 mmol/L (137-145)
[2023-02-25] MEDS ORDERED: VERAPAMIL 2.5 MG/ML 2 ML AMP ONE (09:06)
[2023-02-25] MEDS ORDERED: LIDOCAINE 1% INJ 10MG/ML (20 ML MDV) ONE (09:06)
[2023-02-25] MEDS ORDERED: HEPARIN SODIUM 1,000 UN/ML (10ML VL) ONE (09:14)
[2023-02-25] MEDS ORDERED: fentaNYL (PF) 50 MCG/ML 2 ML AMP ONE (09:14)
[2023-02-25] MEDS ORDERED: LIDOCAINE 1% INJ 10MG/ML (20 ML MDV) SQ ONE (09:27)
[2023-02-25] MEDS ORDERED: MIDAZOLAM 2 MG/2 ML VIAL IVP ONE (09:30)
[2023-02-25] MEDS ORDERED: fentaNYL (PF) 50 MCG/ML 2 ML AMP IVP ONE (09:31)
[2023-02-25] MEDS ORDERED: VERAPAMIL SYRINGE (5 MG/10 ML) INTRAARTER ONE (09:34)
[2023-02-25] MEDS ORDERED: NITROGLYCERIN SL TABS 0.4 MG TAB SUBLINGUAL ONE ×2 (09:38→09:39)
[2023-02-25] MEDS ORDERED: HEPARIN SODIUM 1,000 UN/ML (10ML VL) IV ONE (09:40)
[2023-02-25] MEDS ORDERED: IOPAMIDOL-370 100ML BTL INJ ONE (09:44)
[2023-02-25] MEDS ORDERED: RX INFO: IV CONTRAST WAS GIVEN 1 EACH MISC MISCELLANE PRN (09:57)
[2023-02-25] MEDS ORDERED: SODIUM CHLORIDE 0.9% 1,000 ML IV SCH (10:00)
--- NOTE | 2023-02-25 10:03 | P.CARDCATH ---
Date of Procedure: 02/25/23 Description of Procedure: Cardiac Catheterization: The patient is an 82-year-old female with a known history of CAD status post stenting 2016 who presented with symptoms of progressive dyspnea on exertion and chest discomfort. Recommendations were made regarding cardiac catheterization, the risks and the complications were discussed with the patient who is in full understanding and agreement. Procedure Description: Patient was brought to foundry laborer coreroom in fasting semi-sedated state after receiving Fentanyl and Benadryl achieiving moderate conscious sedated state. Using Xylocaine Anesthesia and modified Seldinger technique, a 6-Indonesian sheath was introduced in the right radial artery . Subsequently, selective coronary angiography was performed using a 5-Indonesian 3.5 bend Lilia catheter. Multiple views of the coronary artery including hemiaxial views were obtained. The 5 Lilia catheter was used to cross the aortic valve and LVEDP was calculated. Following that, catheter and sheath were removed. Hemostasis was obtained with deployment of vascular band . There was no immediate complication. Patient was returned to room in stable condition. Of note, the patient received a total of 4000 units of intravenous heparin as well as intra-arterial verapamil. Findings: Left main: This is a large-size vessel, bifurcating into LAD and left circumflex, left main has no obstructive disease LAD: This is a large-size vessel, reaching to the apex with a wraparound apex segment giving rise to 2 diagonal branch. The LAD in the mid segment has an eccentric 10-20% plaque, the rest of the vessel has no high-grade stenosis Left circumflex: This is a large nondominant vessel with large obtuse marginal branch. The left circumflex has no obstructive disease. RCA: This is a dominant vessel, bifurcating distally to PDA and PLV the ostium of the RCA that has been stented is patent with no evidence of in-stent restenosis, the proximal RCA stent is is patent with no significant in-stent restenosis Left Ventriculogram: Not performed Hemodynamics: . It was no gradient across the aortic valve , LVEDP was 8-10 mmHg Conclusion: 1. Patent stent in the ostium of the RCA and proximal RCA with minimal plaque of 10% 2. Minimal disease in the mid LAD 3. Right dominance 4. Normal LVEDP Recommendations: I have recommended continuing medical therapy, I see no evidence of significant progression of disease.. The findings and the recommendations were discussed with the patient and the family and they were in full understanding and agreement. Duration of sedation is 19 minutes.
[2023-02-25 11:07] VITALS: PULSE 64
[2023-02-25] MEDS ORDERED: hydrALAZINE HCL 25 MG TAB PO SCH (12:30)
[2023-02-25] MEDS ORDERED: amLODIPine 10 MG TAB PO SCH (12:30)
[2023-02-25] MEDS ORDERED: ACETAMINOPHEN TAB 500 MG TAB PO ONE (12:57)
[2023-02-25 13:35] VITALS: BP 161/71
[2023-02-25] MEDS ORDERED: ASPIRIN 81 MG PO SCH (21:00)
[2023-02-26] MEDS ORDERED: ATORVASTATIN 40 MG TAB PO SCH (09:00)
== END 2023-02-25 14:25 | disposition home or self-care (01) ==
LOC: CATHCVL 07:31
PROVIDERS: ATTEND Internal Medicine Interventional Cardiology
DX: I25.10 Atherosclerotic heart disease of native coronary artery without angina pectoris (principal); I34.0 Nonrheumatic mitral (valve) insufficiency; E78.00 Pure hypercholesterolemia, unspecified; I10 Essential (primary) hypertension; L40.9 Psoriasis, unspecified; F15.90 Other stimulant use, unspecified, uncomplicated; Z95.5 Presence of coronary angioplasty implant and graft; Z87.891 Personal history of nicotine dependence; Z79.82 Long term (current) use of aspirin; Z79.899 Other long term (current) drug therapy
CPT/HCPCS: 99152; 93458; 80048; C1769 ×2; C1894; J2250; J2001; J3010; J1644; Q9967

== ENCOUNTER → 2023-06-26 | Outpatient (CLI) | payer MEDICARE ==
[2023-06-26 15:57] LABS: BUN/Creat Ratio 21.38 Ratio (12.00-20.00); Blood Urea Nitrogen 17.1 mg/dL (9.0-27.0); Calcium 9.9 mg/dL (8.7-10.3); Carbon Dioxide 28.5 mmol/L (21.6-31.8); Chloride 103 mmol/L (96-109); Glucose 100 mg/dL (70-110); Potassium 3.7 mmol/L (3.5-5.5); Sodium 143 mmol/L (135-145)
== END | disposition home or self-care (01) ==
LOC: LABWHC1 08:05
PROVIDERS: ATTEND Internal Medicine Interventional Cardiology
DX: I10 Essential (primary) hypertension (principal)
CPT/HCPCS: 36415; 80048

== ENCOUNTER → 2023-09-05 | Outpatient (CLI) | payer MEDICARE ==
[2023-09-05 15:42] LABS: ALT 41 U/L (8-44); AST 32 U/L (13-35); Albumin 4.3 g/dL (3.8-4.9); Albumin/Globulin Ratio 1.95 Ratio (1.60-3.17); Alkaline Phosphatase 131 U/L (41-126); BUN/Creat Ratio 33.25 Ratio (12.00-20.00); Blood Urea Nitrogen 26.6 mg/dL (9.0-27.0); Calcium 9.8 mg/dL (8.7-10.3); Carbon Dioxide 30.9 mmol/L (21.6-31.8); Chloride 103 mmol/L (96-109); Chol/HDL Ratio 2.36 Ratio; Globulin 2.2 g/dL (1.6-3.3); Glucose 106 mg/dL (70-110); LDL Cholesterol,Calculated 65.8 mg/dL (0.0-131.0); Potassium 3.7 mmol/L (3.5-5.5); Sodium 144 mmol/L (135-145); Total Bilirubin 0.3 mg/dL (0.3-1.2); Total Protein 6.5 g/dL (6.2-8.2); VLDL Calculation 15.54 mg/dL (5.00-40.00)
== END | disposition home or self-care (01) ==
LOC: LABWHC1 08:44
PROVIDERS: ATTEND Internal Medicine Interventional Cardiology
DX: I10 Essential (primary) hypertension (principal); E78.2 Mixed hyperlipidemia
CPT/HCPCS: 36415; 80053; 80061